=== PATIENT | female | born 1995 | race African-American/Black ===

== ENCOUNTER → 2016-03-17 | Outpatient (CLI) | payer OTHER ==
[~2016-03-17] MED LIST: DEPO150I IM; IBUP-232 PO; METR-1 PO; NIFE30TA8 PO; PREN1CAP20; RANI150C PO; SENN1TAB PO
== END ==
LOC: HPND 09:56
PROVIDERS: ATTEND Obstetrics & Gynecology Obstetrics
DX: O35.3XX0 Maternal care for (suspected) damage to fetus from viral disease in mother, not applicable or unspecified (principal); O44.03 Complete placenta previa NOS or without hemorrhage, third trimester; O35.2XX0 Maternal care for (suspected) hereditary disease in fetus, not applicable or unspecified; O44.43 Low lying placenta NOS or without hemorrhage, third trimester; Z3A.28 28 weeks gestation of pregnancy
CPT/HCPCS: 76811

== ENCOUNTER → 2016-04-07 | Outpatient (CLI) | payer OTHER ==
[~2016-04-07] MED LIST changes: -RANI150C PO
== END ==
LOC: HPND 09:56
PROVIDERS: ATTEND Obstetrics & Gynecology Obstetrics
DX: O43.893 Other placental disorders, third trimester (principal); O98.313 Other infections with a predominantly sexual mode of transmission complicating pregnancy, third trimester; O36.5930 Maternal care for other known or suspected poor fetal growth, third trimester, not applicable or unspecified; Z3A.31 31 weeks gestation of pregnancy
CPT/HCPCS: 76816

== ENCOUNTER 2016-04-25 11:06 | Emergency (ER) | payer OTHER ==
[~2016-04-25 11:06] MED LIST changes: -DEPO150I IM; -IBUP-232 PO; -METR-1 PO; -NIFE30TA8 PO; -SENN1TAB PO
--- NOTE | 2016-04-25 11:49 | PD ---
HPI Travel History International Travel<30 Days: No Contact w/Intl Traveler<30Days: No Known Affected Area: No History of Present Illness HPI This patient is a 20-year-old 4 para 2 EDC is June 08, 2012 placing the patient at 33 weeks and 5 days she states she began having sharp lower abdominal low back pain at 944 this morning had a second episode at 10 and then at 10:30 no ruptured membranes no vaginal bleeding the baby is active care with care for women problem list includes morbid obesity anemia trichomonas previously treated for syphilis being monitored RPR titers presently the repeat RPR VDRL titers her monthly than every 369 and 12 months after treatment infectious control and health department has been notified patient's baseline blood pressure 118/60 No fever no chills no nausea no vomiting no diarrhea or constipation no recent sexual intercourse patient is presently in school she is very active and on her feet she reports urinary frequency and urgency but no dysuria History Past Medical History Narrative Medical Allergy to Percocet history of morbid obesity and elevated blood pressure she is on medication cannot tell me what medication she is on and she took her last dose yesterday Obstetric History Obstetric History First baby born in 2008 male weight 6 lbs. 5 oz. vaginal delivery Second baby 2013 male weight 6 lbs. 14 oz. vaginal delivery Third baby 2016 female infant weight 6 lbs. 6 oz. vaginal delivery head elevated blood pressure with this Past Surgical History Narrative Surgical Surgery on her right arm and shoulder Family History Narrative Family History Positive for diabetes and hypertension Social History Alcohol Use: No Tobacco Use: No Substance Abuse: No Allergies-Medications (Allergen,Severity, Reaction): Coded Allergies: Percocet (Verified Allergy, Severe, WEAKNESS, 04/01/16) Home Meds Reported Medications W/O Vit A W/ Fe Carbo (Prenate Mini 18-0.6-0.4-350 mg)1 Cap Cap 01/22/16 Review of Systems General / Constitutional: No: Fever, Weight Gain, Weight Loss, Chills, Other Eyes: No: Diploplia, Blurred Vision, Visual changes, Pain, Photophobia, Other HENT: No: Headaches, Vertigo, Dental Difficulties, Lightheadedness, Other Cardiovascular: No: Irregular Rhythm, Chest Pain or Discomfort, Palpitations, Tachycardia, Syncope, Varicosities, Edema, Cyanosis, Other Respiratory: No: Cough, Short of Breath, Wheezing, Other Gastrointestinal: Abdominal Pain (as per history of present illness) Genitourinary: Urgency, Frequency, Hesitancy Musculoskeletal: Other (low back pain), No: Limited ROM, Weakness, Cramping, Edema, Pain Neurologic: No: Weakness, Dizziness, Syncope, Focal Abnormalities, Coordination Problem, Headache, Slurred Speech, Seizures, Other Physical Exam Narrative Alert oriented 3 and cooperative in no acute distress GENERAL: Well-nourished, well-developed patient. CARDIOVASCULAR: Regular rate and rhythm without murmurs, gallops, or rubs. RESPIRATORY: Breath sounds equal bilaterally. No accessory muscle use. ABDOMEN/GI: Gravid consistent with stated gestational age morbidly obese it soft tenderness over the right and left round ligament no rebound tenderness Gravid to [-] weeks size proximally 34 Fundal Height: [-] GENITOURINARY: Speculum exam is done there is a fishy greenish copious discharge in the vagina the vaginal mucosa is erythematous cervix is grossly thick and closed External Genitalia: intact and normal in appearance BUS glands: [-] Cervix: [-] Posterior firm Dilatation: [-] External os is fingertip internal os is closed Effacement: [-] 0 Station: [-] Ballotable Presentation: [-] Vertex Membranes: [intact Uterine Contractions: [-] No contractions on the monitor FHT's: Category: [-] 1 Baseline: [-] 140 Reactive: [-]+ Variability: [-] Moderate [id number] variability Decels: [-] 0 EXTREMITIES: No cyanosis or edema. 2+ BACK: Nontender without obvious deformity. No CVA tenderness. NEUROLOGICAL: Awake and alert. Motor and sensory grossly within normal limits. Five out of 5 muscle strength in all muscle groups. Normal speech. Data Data Vital Signs Reviewed: Yes (blood pressure 126/65 pulse is 98 she is afebrile) Orders Vital Signs (Adult) .ON ADMISSION (04/25/16 11:39) ^ Labor Status (04/25/16 11:39) Urinalysis - C+S If Indicated (04/25/16 11:39) ^ Hydration (04/25/16 11:39) Wet Prep Profile (04/25/16 11:39) [facility] Medical Record Reviewed: Yes Interpretation(s) 20-year-old at 33 weeks and 5 days Not in labor Morbidly obese Rule out UTI Vaginitis consistent with either BV or Trichomonas GC Chlamydia cultures done History of positive syphilis treated Narrative Course / MDM GC chlamydia are negative Wet prep negative Culture not indicated Results given to patient She is given Vistaril 50 mg by mouth bed rest by mouth fluid hydration pelvic rest Keep next appointment Plan External monitoring By mouth fluid hydration Urinalysis GC Chlamydia PCR Wet prep Reevaluation Diagnosis Diagnosis: Primary Impression: [place] contractions Additional Impressions: Morbid obesity Qualified Code: E66.01 - Morbid obesity, unspecified obesity type 33 weeks gestation of Disposition: DISCHARGE HOME Condition: Stable Holly Cordero MD Apr 25, 2016 11:49
[2016-04-25 12:06] LABS: BACTERIA, URINE RARE /hpf; BLOOD, URINE NEG (NEG); COMMENT (UR) CULT NOT INDICATED; CULTURE IF INDICATED CULT NOT INDICATED; GLUCOSE,URINE NEG (NEG); KETONE, URINE TRACE mg/dL (NEG); MUCUS URINE FEW /lpf (OCC); NITRITE,URINE NEG (NEG); SQUAMOUS EPITHELIAL CELL URINE 1 /hpf (0-5); TRANSITIONAL EPI CELLS, URINE <1 /hpf; URINE COLOR YELLOW (YELLW/STRAW)
[2016-04-25 15:08] LABS: CHLAMYDIA PCR NOT DETECTED (NOT DETECT); NEISSERIA PCR NOT DETECTED (NOT DETECT)
[2016-06-10] MEDS ORDERED: DEPO150I IM (12:45)
[2016-06-10] MEDS ORDERED: IBUP-232 PO (12:45)
[2016-07-01] MEDS ORDERED: NIFE30TA8 PO (10:11)
[2016-07-01] MEDS ORDERED: METR-1 PO (10:14)
== END 2016-04-25 13:39 | disposition home or self-care (01) ==
LOC: HOBED 11:06
DX: O47.03 False labor before 37 completed weeks of gestation, third trimester (principal); O99.213 Obesity complicating pregnancy, third trimester; E66.01 Morbid (severe) obesity due to excess calories; Z3A.33 33 weeks gestation of pregnancy
CPT/HCPCS: 81001; 87210; 87491; 87591; 99284

== ENCOUNTER 2016-05-19 11:15 | Inpatient (IN) | payer OTHER ==
[~2016-05-19] VITALS: Ht 157.5 cm; Wt 124.3 kg
[2016-05-19] MEDS ORDERED: LACTATED RINGER'S 1000 ML INJ 1,000 ML IV PRN (11:21)
[2016-05-19] MEDS: LACTATED RINGER'S 1000 ML INJ 1,000 ML IV SCH ×3 (11:21→23:03)
--- NOTE | 2016-05-19 11:26 | HHI.HP ---
HPI Chief Complaint sent from [facility] for oligohydramnios, elevated blood pressures Date Seen: May 19, 2016 Time Seen: 11:25 (Cesar Lopez MD R2) Travel History International Travel<30 Days: No Contact w/Intl Traveler<30Days: No (Cesar Lopez MD R2) History of Present Illness HPI 20 year old at 37/1 weeks gestation sent from [facility] for elevated blood pressures and oligohydramnios with IUGR and grade 3 placenta. Blood pressures of 140's-150's/90's but without severe headache, epigastric pain, new onset swelling, or visual changes. MARY ANN today is 5.5. She has no contractions, vaginal bleeding, leakage of fluid. She has good movements. She has been following regularly with [facility] for oligohydramnios and IUGR. Hypertension is new. She also had positive VDRL with FTA-abs in 11/25. Repeat RPR was negative yesterday and reflex to FTA-abs is pending. (Cesar Lopez MD R2) History Past Medical History Narrative Medical None (Cesar Lopez MD R2) Obstetric History Obstetric History OB. Panel ANAMARIA 06/08/16 - by Definite LMP of 09/02/15 Confirmed by Ultrasound 12/02/15 first trimester scan done at [facility] Problems/Plan Sono findings 03/17- grade III placenta and small AC Sono findings 04/07- abnormal umbilical doppler and Low MARY ANN Sono finding 04/28: IUGR morbid obesity anemia 11/24-+TRICH-pt aware 11/25-+syphillis ab(5.6)-rpr non reactive- FTA-ABS REACTIVE: pt was + for syphillis September 2013 with tx needs Iron studies, ferritin, TIBC, serum iron [facility] appt- 12/01. [facility] anatomy scan scheduled. 01/26 @10:30 03/18/16, Gave Pt RPR Titer Lab Req. Today. [facility] appt 02/18/16 @ 10:15 OB Dx appointment 04/07/16, for growth. [facility] appt 04/14 [facility] appt 04/17 [facility] appt 04/21, 04/28 [facility] appt- start twice weekly bpp with MCA and umblical dopplers Repeat the RPR/VDRL titers monthly and then 3,6,9,and 12 months after treatment , Notify infectious control and Bigg Department for proper treatment of her partner. 04/01-HGB 8.8 *PATIENT DOES NOT HAVE A WORKING PHONE NUMBER, NEEDS FOLLOW UP RIZWANA* Expected Delivery Route/Plan vaginal Visit Flowsheet Prepregnancy Weight: 245 #: 3 Date EGA BP Wt Alb Glu FuHt Pres FHR F/m CTX Edema Dil Eff Sta Prov 10/24/14 0w0d 90/60 252 T n Absent Absent Absent 0 0 sc 11/21/14 0w0d 110/77 254 N N 17 136 Absent Absent Absent sc 12/18/14 0w0d 96/66 252 T n 21 137 Active Absent Absent sc 01/24/15 0w0d 102/72 251 30 141 Active Absent Absent sc 02/21/15 0w0d 100/70 257 33 136 Active Absent Absent sc 03/27/15 0w0d 132/70 254 30 n 39 137 Active BH Absent sc 04/22/15 0w0d N N 11/26/15 12w1d 118/60 268 t n 150 Absent Absent Absent 0 0 sc 12/25/15 16w2d 132/70 262 n n 16 144 Normal Absent Absent lb 01/22/16 20w2d 110/82 266 n n 22 156 Normal Absent Absent lb 02/19/16 24w2d 113/51 263 30 n 24 140 Active Absent Absent sc 03/18/16 28w2d 116/66 265 30+ N 32 138 Active Absent Absent lb 04/01/16 30w2d 122/74 265 - - 33 140 Active Absent Absent sc 04/29/16 34w2d 119/66 273 N N 34 143 Active Absent Trace jg 05/14/16 36w3d 132/85 274 - - 37 140 Active BH Trace sc Cumulative Gain: 29 2 Date EGA Comment 05/14/16 36w3d Baby active, pt has URI, no fever. Pt being followed by [facility] twice weekly. q and Wed. GBS and cx obtained, noted copious vag dc. Vag panel ordered. Continue [facility] appts. labor discussed 04/29/16 34w2d BPP yesterday was 10 Sono shows severe IUGR Will continue to follow with testing 04/01/16 30w2d baby active, no c/o. Pt had labs drawn today. labor discussed 03/18/16 28w2d FTA pos, Tony recommends serial titers of rpr 02/19/16 24w2d Baby active, pt missed her US appt. at [facility] this past . She has already rescheduled. Discussed importance of keeping appt's. labor discussed 01/22/16 20w2d c/o tooth pain, 4 cavities and two molars broken off, will refer to dental clinic. Rx for amoxicillin. ANatomy sono next week at [facility] 12/25/15 16w2d reports good FM , no c/o today. Will schedule anatomy sono at [facility], rto here in 4 weeks 11/26/15 12w1d New OB, pap and cx obtained. Unable to hear FHT's w doppler, US used to confirm FHT's. will send to [facility] for dating due to MO. 03/27/15 0w0d SONO. Grade III placenta, EFW is WNL 45%tile, no abnormalities visualized although limited due to MBH, GA and lie. Referred to [facility] for weekly BPP 03/27/15 0w0d baby active, sts only BH ctx- needs iron rx- hgb 8.9 with 28wk labs. C/o rash all over body due to change of laundry detergent- no difficulty breathing. very itchy, pt's mother has same rash. Will treat. GBS and cultures done 02/21/15 0w0d Baby active, no c/o. labor reviewed. Will rescan at next visit. 01/24/15 0w0d sono. biometries consistant with dates. EFW 2lbs 4 oz. Placent grade 3, consider follow up growth and recheck placenta 4-6 weeks. 01/24/15 0w0d baby active, pt has not picked up meds for yeast. labor reviewed, labs ordered. 12/20/14 0w0d SONO. biometries consistant with dates, EFW 1 lb 2oz. no abormalities visualized although limited due to maternal body habitus and lie. Profile and heart views extremely limited. FU 4-5wk 12/18/14 0w0d Baby active, pt given terazol cream instead of diflucan. Encourage increased water intake. labor reviewed. 09/09/15 0w0d Good FHT's. Pt reminded to have labs drawn so we can better dx sx of back pain, sandro possible UTI. will return for anatomy scan and check up in 3 wks 10/24/14 0w0d Sono, EFW 3oz, Anatomy limited, needs followup ultrasound for anatomy 10/24/14 0w0d Initial OB visit, Pap and cx obtained. Noted irreg HR, reports vomitting. Unable to hear FHT's w doppler, will need US for dates and then will be sent to the ED for eval of anemia, N&V and irreg HR. Standard Items 3 Result Result Date Next Due Freq/Seq Obstetric Labs Initial Rapid Plasma Reagin Ordered Ordered Ordered 6w0d Hematocrit 29.9 L 16 (21w4d) 03/02/16 (26w0d) 6w0d 31.3 L 11/05/15 (9w1d) 26w0d Hemoglobin 9.7 L 01/31/16 (21w4d) 03/02/16 (26w0d) 6w0d 9.6 L 16 (9w1d) 26w0d Obstetric Labs 24-28 WKS Hematocrit 29.9 L 1816 (21w4d) 03/02/16 (26w0d) 6w0d 31.3 L 16 (9w1d) 26w0d Hemoglobin 9.7 L 16 (21w4d) 16 (26w0d) 6w0d 9.6 L 16 (9w1d) 26w0d History 2 : 4 AB Spontaneous: 0 Term: 3 Mult Births: 0 : 0 Ectopic: 0 AB Induced: 0 Living Children: 3 Past Pregnancies 3 Delivery Gest. Outcome Route Length of Anesthesia Delivery Date Age/Wks # Weight/Sex Labor Location Labor 09/11/08 39 1 Live Vaginal 6 lbs 5 oz - M 9 Hrs Epidural HH No 01/08/14 39 1 Live Vaginal 6 lbs 14 oz - M 10 Hrs Epidural HH No 04/08/15 38 1 Live Vaginal 6 lbs 5 oz - F 8 Hrs Epidural [place] No OTHER- Care-Labs/US Initial lab date: Nov 26, 2015 Blood type: O D (Rh) Type: Positive Antibody screen: negative Hematocrit (%): 28.0 Hemoglobin (dL): 8.7 Pap test: normal (11/26/15+TRICH) Rubella: Immune VDRL: positive (+SYPHILLIS AND + FTA-ABS) Urine screen: Normal HBsAg: negative HIV: negative Chlamydia: negative Gonorrhea: negative Cystic fibrosis: negative (11/06-neg for CF, SMA, Fragile X) TSH: 0.47 Varicella: Negative (NON IMMUNE) Sickle Cell: Negative MRSA screen: Denied MRSA Hx MSAFP/multiple markers: negative (12/02/15-[facility] NEG, HAVING A GIRL) Visit date: Apr 01, 2016 Hematocrit (%): 29.3 Hemoglobin (dL): 8.8 Diabetes screen - 1-hr GGT: 106 MRSA screen: Denied MRSA Hx (Cesar Lopez MD R2) Past Surgical History Narrative Surgical skin surgery (Cesar Lopez MD R2) Family History Narrative Family History Mother with hypertension (Cesar Lopez MD R2) Social History Narrative Social History No smoking, drinking, or drug use (Cesar Lopez MD R2) Allergies-Medications (Allergen,Severity, Reaction): Coded Allergies: Percocet (Verified Allergy, Severe, WEAKNESS, 04/29/16) Home Meds Reported Medications W/O Vit A W/ Fe Carbo (Prenate Mini 18-0.6-0.4-350 mg)1 Cap Cap 01/22/16 Review of Systems Except as stated in HPI: all other systems reviewed are Neg (Cesar Lopez MD R2) Physical Exam Narrative GENERAL: Obese, comfortable SKIN: Warm and dry. HEAD: Normocephalic and atraumatic. EYES: No scleral icterus. No injection or drainage. ENT: No nasal drainage noted. Mucous membranes pink. Airway patent. NECK: Supple, trachea midline. No JVD. CARDIOVASCULAR: Regular rate and rhythm without murmurs, gallops, or rubs. ABDOMEN/GI: Abdomen soft, non-tender, bowel sounds present, no rebound, no guarding Gravid to [-] weeks size Fundal Height: [-] GENITOURINARY: External Genitalia: intact and normal in appearance Dilatation: 1 Effacement: 50 Station: -3 Presentation: Vertex Membranes: intact Uterine Contractions: none FHT's: Category: 1 Baseline: 140's Reactive: yes Variability: moderate Decels: none EXTREMITIES: No cyanosis or edema. BACK: Nontender without obvious deformity. No CVA tenderness. NEUROLOGICAL: Awake and alert. (Cesar Lopez MD R2) Data Data Vital Signs Reviewed: Yes (Cesar Lopez MD R2) Assessment/Plan Problem List: (1) Anemia complicating Plan: - Monitor CBC (2) Oligohydramnios Plan: MARY ANN of 5.5, post-37 weeks gestation. - Induce labor (3) Obesity (4) History of VDRL Plan: RPR negative but VDRL positive on 11/26/15 with FTA-abs positive, treated X1 with penicillin. RPR done yesterday which was negative, but FTA-abs pending. - Follow FTA-abs (5) induced hypertension Plan: BP's 140's-150's/90's, no headache, epigastric pain, visual changes. No documented history of hypertension. - CBC, CMP, monitor platelets, liver enzymes, hemoglobin, kidney function. - Monitor for development of severe symptoms, i.e. severe headache, epigastric pain, visual changes. - Low threshold for magnesium sulfate for abnormalities of the above. - BP medication only for BP's >160 systolic or >110 diastolic. (6) labor induction Plan: Unfavorable cervix, /-3. - Cervical ripening with cytotec - Continuous EFM Assessment and Plan 20 year old at 37/1 weeks gestation presents from [facility] with elevated blood pressures (140's-150's/90's), oligohydramnios, IUGR, history of syphilis, anemia. (Cesar Lopez MD R2) Attending Attestation The exam, history, and the medical decision-making described in the above note were completed with the assistance of the resident provider. I reviewed and agree with the findings presented. I attest that I had a [id number] encounter with the patient on the same day, and personally performed and documented my assessment and findings in the medical record. (Carlos Zuñiga MD) Cesar Lopez MD R2 May 19, 2016 11:26 Carlos Zuñiga MD May 19, 2016 12:44
[2016-05-19 11:29] VITALS: BP 157/95; PULSE 107
[2016-05-19 11:30] VITALS: RESP 18; TEMP 98.4
[2016-05-19] MEDS ORDERED: MINERAL OIL 10 ML VIAL TOPICAL PRN (11:30)
[2016-05-19] MEDS ORDERED: SODIUM CHLORID 0.9% 500 ML INJ 500 ML IV PRN (11:30)
[2016-05-19] MEDS ORDERED: SODIUM CHLORIDE 0.9% FLUSH 5 ML FLUSH IV SCH (11:30)
[2016-05-19] MEDS ORDERED: LIDOCAINE HCL 1% 50 ML VIAL INFIL PRN (11:30)
[2016-05-19] MEDS ORDERED: CITRIC ACID-SODIUM CITRATE LIQ 30 ML UDC PO SCH (11:30)
[2016-05-19] MEDS ORDERED: LIDOCAINE HCL 1% 50 ML VIAL I-DERMAL PRN (11:30)
[2016-05-19] MEDS ORDERED: OXYTOCIN 30 UNITS-500ML PREMIX 500 ML IV ONE (11:30)
[2016-05-19] MEDS ORDERED: SODIUM CHLORIDE 0.9% FLUSH 5 ML FLUSH IV PRN (11:30)
[2016-05-19] MEDS ORDERED: SODIUM CHLOR 0.9% 1000 ML INJ 1,000 ML IV PRN (11:41)
[2016-05-19] MEDS: SODIUM CHLORIDE 0.9% FLUSH 5 ML FLUSH IV FLUSH SCH ×2 (12:00→21:00)
[2016-05-19] MEDS ORDERED: SODIUM CHLORIDE 0.9% FLUSH 5 ML FLUSH IV FLUSH PRN (12:00)
[2016-05-19] MEDS ORDERED: LACTATED RINGER'S 1000 ML INJ 500 ML IV ONE (12:00)
[2016-05-19 12:01] LABS: HEMATOCRIT 32.1 % (35.0-46.0); MEAN CELL VOLUME 63.8 FL (80.0-100.0); MEAN CORPUSCULAR HEMOGLOBIN 19.4 PG (27.0-34.0); MEAN CORPUSCULAR HGB CONC 30.4 % (32.0-36.0); PLATELET COUNT 325 TH/MM3 (150-450); RED BLOOD COUNT 5.04 MIL/MM3 (4.00-5.30); RED CELL DISTRIBUTION WIDTH 19.1 % (11.6-17.2); WHITE BLOOD COUNT 7.4 TH/MM3 (4.0-11.0)
[2016-05-19 12:02] LABS: REVIEW FLAG FINAL
[2016-05-19 12:20] LABS: BACTERIA, URINE MANY /hpf; BLOOD, URINE SMALL (NEG); COMMENT (UR) CULTURE INDICATED; CULTURE IF INDICATED CULTURE INDICATED; GLUCOSE,URINE NEG (NEG); KETONE, URINE NEG (NEG); MUCUS URINE MOD /lpf (OCC); NITRITE,URINE NEG (NEG); SQUAMOUS EPITHELIAL CELL URINE 19 /hpf (0-5); URINE COLOR YELLOW (YELLW/STRAW)
[2016-05-19 12:23] LABS: ANION GAP 10 MEQ/L (5-15); AST (GOT) 11 U/L (15-37); BICARBONATE 24.5 MEQ/L (21.0-32.0); BLOOD UREA NITROGEN 5 MG/DL (7-18); CHLORIDE 105 MEQ/L (98-107); GLOMERULAR FILTRATION RATE 157 ML/MIN (>89); POTASSIUM 3.4 MEQ/L (3.5-5.1); SODIUM (NA) 139 MEQ/L (136-145)
[2016-05-19 12:26] LABS: ALKALINE PHOSPHATASE 196 U/L (45-117); ALT (GPT) 20 U/L (10-53); TOTAL BILIRUBIN ADULT 0.2 MG/DL (0.2-1.0); URIC ACID 4.7 MG/DL (2.6-6.0)
[2016-05-19] MEDS ORDERED: MISOPROSTOL 25 MCG SUPP VAGINAL ONE (12:30)
[2016-05-19 14:24] VITALS: TEMP 98.4
[2016-05-19 14:27] VITALS: RESP 20
[2016-05-19 14:29] VITALS: BP 126/67; PULSE 95
[2016-05-19] MEDS ORDERED: metroNIDAZOLE 500 MG TAB PO ONE (15:00)
[2016-05-19] MEDS ORDERED: MISOPROSTOL 25 MCG SUPP VAGINAL PRN (16:00)
--- NOTE | 2016-05-19 16:50 | PD.LABORPN ---
Subjective Subjective Resting in bed. Feeling contractions. No headache, visual blurriness, or epigastric pain. Otherwise doing well. Completed first dose of Cytotec. Contractions every 3 minutes. No cervical change since admission. Objective Vital Signs Vital Signs Date Time Temp Pulse Resp B/P Pulse Ox O2 Delivery O2 Flow Rate FiO2 05/19/16 14:29 95 126/67 05/19/16 14:27 20 05/19/16 14:24 98.4 05/19/16 11:30 18 05/19/16 11:30 98.4 05/19/16 11:29 107 157/95 Objective Pelvic Exam: Dilatation: 1 Effacement: 50 Station: -3 Presentation: vertex Membranes: intact Uterine Contractions: q3mins FHT's: Category:1 Baseline: 130's Reactive: yes Variability: moderate Decels: none Assessment/Plan Problem List: (1) Anemia complicating Plan: - Monitor CBC, hgb 9.8 (2) Oligohydramnios Plan: MARY ANN of 5.5, post-37 weeks gestation. - See "labor induction" for plan (3) Obesity (4) History of VDRL Plan: RPR negative but VDRL positive on 11/26/15 with FTA-abs positive, treated X1 with penicillin. RPR done yesterday which was negative, but FTA-abs pending. - Follow FTA-abs (5) induced hypertension Plan: BP's improving since admission, no headache, epigastric pain, visual changes. No documented history of hypertension. Hgb 9.8, platelets 325, ALT 20, AST 11, creatinine 0.58. - Monitor for development of severe symptoms, i.e. severe headache, epigastric pain, visual changes. - Low threshold for magnesium sulfate if developing severe symptoms - BP medication only for BP's >160 systolic or >110 diastolic. (6) labor induction Plan: Cervix still 50/-3, contractions every 3 minutes, completed first dose of cytotec - Continuous EFM - Hold off on Cytotec dosing for now due to contractions, monitor (7) Trichomonas infection Plan: Positive for trichomonas - Treated with one time dose of 2g metronidazole - Recommend partner be treated Cesar Lopez MD R2 May 19, 2016 16:50
[2016-05-19] MEDS ORDERED: OXYTOCIN 30 UNITS-500ML PREMIX 500 ML IV SCH (20:45)
[2016-05-19] MEDS ORDERED: ONDANSETRON HCL 4 MG/2 ML VIAL ONE (21:32)
[2016-05-19] MEDS ORDERED: ONDANSETRON HCL 4 MG/2 ML VIAL IV PUSH PRN (21:45)
[2016-05-20] VITALS (29 sets, daily range): BP systolic 137–167; BP diastolic 60–102; PULSE 83–100; RESP 18–20; TEMP 97.7–98.5; O2SAT 98–100
[2016-05-20] MEDS: LACTATED RINGER'S 1000 ML INJ 1,000 ML IV SCH ×3 (00:08→15:59)
--- NOTE | 2016-05-20 04:52 | PD.LABORPN ---
Subjective Subjective 37 wk IUP with IUGR , oligo , HTN now for induction AROM clear IUPC FSE inserted to better evaluate labor , FHR WNL good variability pitocin at 11 ml/min , epidural in place Anticipate vaginal delivery Objective Objective Pelvic Exam: Cervix: [-] Dilatation: [3-4-] Effacement: [50-] Station: [-3] Presentation: [-vtx] Membranes: [ ruptured]AROM Uterine Contractions: [reg-] FHT's: Category: [-1] Baseline: [133-] Reactive: [yes-] Variability: [mod-] Decels: [0-] Assessment/Plan Problem List: (1) Anemia complicating Plan: - Monitor CBC, hgb 9.8 (2) Oligohydramnios Plan: MARY ANN of 5.5, post-37 weeks gestation. - See "labor induction" for plan (3) Obesity (4) History of VDRL Plan: RPR negative but VDRL positive on 11/26/15 with FTA-abs positive, treated X1 with penicillin. RPR done yesterday which was negative, but FTA-abs pending. - Follow FTA-abs (5) induced hypertension Plan: BP's improving since admission, no headache, epigastric pain, visual changes. No documented history of hypertension. Hgb 9.8, platelets 325, ALT 20, AST 11, creatinine 0.58. - Monitor for development of severe symptoms, i.e. severe headache, epigastric pain, visual changes. - Low threshold for magnesium sulfate if developing severe symptoms - BP medication only for BP's >160 systolic or >110 diastolic. (6) labor induction Plan: Cervix still /50/-3, contractions every 3 minutes, completed first dose of cytotec - Continuous EFM - Hold off on Cytotec dosing for now due to contractions, monitor (7) Trichomonas infection Plan: Positive for trichomonas - Treated with one time dose of 2g metronidazole - Recommend partner be treated Efrain Le II, MD May 20, 2016 04:52
[2016-05-20] MEDS ORDERED: fentaNYL 2MCG-BUPIV 0.125% INJ 100 ML ONE (06:42)
[2016-05-20] MEDS: SODIUM CHLORIDE 0.9% FLUSH 5 ML FLUSH IV FLUSH SCH (09:00)
--- NOTE | 2016-05-20 12:23 | PD.OB.DELI ---
Anesthesia: Epidural Episiotomy: None Vaginal Delivery: Normal Presentation: Occiput anterior Nuchal Cord: None Delayed cord clamping (45 sec): Yes : Female One Minute : 9 Five Minute : 9 Weight: 5LB 5 OZ Infant Care: Suctioned, Spontaneous crying, Responded to stimulation Placenta: Spontaneous delivery, Intact, 3 vessel cord, Other (some calcification on side of placenta) Laceration: No lacerations Additional Information This 20-year-old G for P3 at 37 and 2/7 weeks initially admitted to L&D for IUGR , grade 3 placenta, and borderline elevated blood pressures delivered vaginally under epidural anesthesia. AROM occurred at 0436 this morning, clear. The infant was delivered quickly possibly 3 total pushes. was transferred to patient's abdomen after delivery. Infant was suctioned with bulb on the abdomen. The cord was clamped and cut by a relative. Placenta was delivered intact with normal three-vessel cord, notable for some calcifications but not severe. The fundus was firm with massage and IV Pitocin. There are minimal superficial lacerations, one in the right periurethral area 1 on the left distal vaginal wall. Female weighs 5 lbs. 5 oz. and Apgars were 8 and 9. EBL is 200 mL. Mom and AB are recovering well. Dr. Fischer was present for delivery. (Gretel Monroy MD R1) Collaborating MD Comments Dr Monroy was supervised through this spontaneous vaginal delivery over intact perineum. Right periurethral tear not repaired. Placenta delivered intact. EBL<500cc (Carrol Fischer MD) Gretel Monroy MD R1 May 20, 2016 12:23 Carrol Fischer MD May 20, 2016 18:29
[2016-05-20] MEDS ORDERED: WITCH HAZEL 50%/GLYCERIN 12.5% 40 PAD JAR TOPICAL PRN ×2 (13:00→14:45)
[2016-05-20] MEDS ORDERED: IBUPROFEN 600 MG TAB PO PRN (13:00)
[2016-05-20] MEDS ORDERED: ONDANSETRON ODT 4 MG TAB PO PRN ×2 (13:00→14:45)
[2016-05-20] MEDS ORDERED: DOCUSATE SODIUM 50 MG/SENNA 8.6 MG TAB PO PRN ×2 (13:00→14:45)
[2016-05-20] MEDS ORDERED: ALUMINUM/MAGNESIUM/SIMETH 30 ML CUP PO PRN ×2 (13:00→14:45)
[2016-05-20] MEDS ORDERED: ACETAMINOPHEN 325 MG TAB PO PRN ×2 (13:00→14:45)
[2016-05-20] MEDS ORDERED: ZOLPIDEM TARTRATE 5 MG TAB PO PRN ×2 (13:00→14:45)
[2016-05-20] MEDS ORDERED: SODIUM CHLORIDE 0.9% FLUSH 5 ML FLUSH IV PRN ×2 (13:00→14:45)
[2016-05-20] MEDS ORDERED: BENZOCAINE 20% TOPICAL SPRAY 60 ML CAN TOPICAL PRN ×2 (13:00→14:45)
[2016-05-20 14:15] LABS: AUTOMATED NEUTROPHIL # 11.3 TH/MM3 (1.8-7.7); BASOPHIL % 0.2 % (0.0-2.0); HEMATOCRIT 29.9 % (35.0-46.0); LYMPH % 8.9 % (9.0-44.0); LYMPHOCYTE # 1.2 TH/MM3 (1.0-4.8); MEAN CELL VOLUME 64.1 FL (80.0-100.0); MEAN CORPUSCULAR HEMOGLOBIN 19.4 PG (27.0-34.0); MEAN CORPUSCULAR HGB CONC 30.2 % (32.0-36.0); MONO % 4.4 % (0.0-8.0); NEUT % 86.5 % (16.0-70.0); PLATELET COUNT 297 TH/MM3 (150-450); RED BLOOD COUNT 4.66 MIL/MM3 (4.00-5.30); RED CELL DISTRIBUTION WIDTH 18.9 % (11.6-17.2)
[2016-05-20] MEDS ORDERED: MAGNESIUM SULFATE 4 GM PREMIX 100 ML IV ONE (14:15)
[2016-05-20] MEDS: MAGNESIUM SULFATE 40 GM PREMIX 1,000 ML IV SCH (14:16)
[2016-05-20 14:18] LABS: HEMO FLAGS AUTO DIFF
--- NOTE | 2016-05-20 14:19 | HHI.OB ---
Subjective Post Day: 0 Remarks 20 year old G4P now 4 at 37/1 weeks gestation presented from [facility] on 05/19/16 with elevated blood pressures (140's-150's/90's), oligohydramnios, IUGR, history of syphilis, anemia. She delivered via normal spontaneous vaginal delivery at 1137 today. She has had elevated blood pressures during the , though not in the preeclamptic range. She now has elevated blood pressure readings which meet preeclampsia criteria 2, 167/91 and 160/107 noted 30 minutes apart. No hemorrhage noted. She is asymptomatic. Objective Vitals/I&O Vital Signs Date Time Temp Pulse Resp B/P Pulse Ox O2 Delivery O2 Flow Rate FiO2 05/20/16 06:57 18 05/19/16 14:29 95 126/67 05/19/16 14:24 98.4 BP noted in OB trace to 167/91 at 1335, 164/107 at 1405, pulse is 94-97 Objective Remarks GENERAL: Obese female in NAD. She remains afebrile with vital signs showing elevated blood pressure as noted above. No evidence of hemorrhage or pain. Medications and IVs Current Medications Medications (Trade) Dose Ordered Sig/Ambrocio Route Start Time Stop Time Status Last Admin Lactated Ringer's 1,000 ml @ 75 mls/hr [id number] IV 05/19/16 11:21 05/20/16 00:08 Lactated Ringer's 1,000 ml @ 125 mls/hr Q8H IV 05/19/16 11:21 05/20/16 06:18 Lactated Ringer's 1,000 ml @ 3,000 mls/hr Q20M PRN IV 05/19/16 11:21 Sodium Chloride 500 ml @ 1,000 mls/hr ONCE PRN IV 05/19/16 11:30 05/21/16 11:29 (NS 1000 ml Inj) 1,000 ml @ 100 mls/hr Q10H PRN IV 05/19/16 11:41 05/20/16 09:05 (fentaNYL INJ) 50 mcg Q1H PRN IV PUSH 05/19/16 11:30 (fentaNYL INJ) 100 mcg Q1H PRN IV PUSH 05/19/16 11:30 (Muri-Lube Oil) 10 ml UNSCH PRN TOPICAL 05/19/16 11:30 (NS Flush) 2 ml BID IV FLUSH 05/19/16 12:00 IV Flush 2 ml 2 ml UNSCH PRN IV FLUSH 05/19/16 12:00 (Pitocin 30 Units-NS 500 ml Premix) 500 ml @ 0 mls/hr TITRATE IV 05/19/16 20:45 05/19/16 21:10 (Zofran Inj) 4 mg Q8HR PRN IV PUSH 05/19/16 21:45 (NS Flush) 2 ml BID IV 05/20/16 21:00 (NS Flush) 2 ml UNSCH PRN IV 05/20/16 13:00 (Tylenol) 650 mg Q4H PRN PO 05/20/16 13:00 (Motrin) 600 mg Q6H PRN PO 05/20/16 13:00 (Percocet 5-325 Mg) 1 tab Q4H PRN PO 05/20/16 13:00 (Percocet 5-325 Mg) 2 tab Q4H PRN PO 05/20/16 13:00 (Americaine 20% Top Spr) 1 spray Q4H PRN TOPICAL 05/20/16 13:00 (Tucks Pads) 1 applic QID PRN TOPICAL 05/20/16 13:00 (Gricel-Colace) 2 tab Q12H PRN PO 05/20/16 13:00 (Ambien) 5 mg HS PRN PO 05/20/16 13:00 (M-M-R Ii Inj) 0.5 ml ONCE ONCE SQ 05/20/16 16:00 05/20/16 16:01 (Boostrix Inj) 0.5 ml ONCE ONCE IM 05/20/16 16:00 05/20/16 16:01 (Mag-Al Plus Susp Liq) 15 ml Q8H PRN PO 05/20/16 13:00 Ondansetron HCl 4 mg 4 mg Q6H PRN PO 05/20/16 13:00 Magnesium Sulfate 1,000 ml @ 50 mls/hr Q20H IV 05/20/16 14:02 UNV (Magnesium Sulfate 4 Gm Premix) 100 ml @ 300 mls/hr ONCE ONCE IV 05/20/16 14:15 05/20/16 14:34 UNV Assessment/Plan Problem List: (1) induced hypertension Plan: No headache, epigastric pain, visual changes. No documented history of hypertension the patient possibly has chronic hypertension. Admission labs showed Hgb 9.8, platelets 325, ALT 20, AST 11, creatinine 0.58. Plan: IUP delivered 05/20/at 11:37 AM Patient is asymptomatic Suspect preeclampsia vs gestational HTN vs. chronic HTN. We'll order CBC and CMP at this time. Her gas and not indicated For seizure prophylaxis, start Mg sulfate 4 gm IV x 1 at 300 ml/hr, continue magnesium sulfate at 2 gm/h per protocol If blood pressure does not decrease with magnesium alone, will add Labetalol 20 mg IV q10 mins PRN SBP >150 DBP > 100 and will consider other BP medications per protocol if indicated. (2) Anemia complicating Plan: - Monitor CBC, hgb 9.8 at admission (3) Oligohydramnios Plan: MARY ANN of 5.5, post-37 weeks gestation. Now delivered. (4) Obesity (5) History of VDRL Plan: RPR negative but VDRL positive on 11/26/15 with FTA-abs positive, treated X1 with penicillin. RPR done yesterday which was negative. Patient does have an FTA ABS pending as outpatient. (6) Trichomonas infection Plan: Positive for trichomonas - Treated with one time dose of 2g metronidazole at admission - Recommend partner be treated Assessment and Plan Gretel Monroy MD R1 May 20, 2016 14:19 Gretel Monroy MD R1 May 20, 2016 14:19
[2016-05-20 14:34] LABS: ANION GAP 10 MEQ/L (5-15); AST (GOT) 12 U/L (15-37); BICARBONATE 24.3 MEQ/L (21.0-32.0); BLOOD UREA NITROGEN 4 MG/DL (7-18); CHLORIDE 106 MEQ/L (98-107); GLOMERULAR FILTRATION RATE 164 ML/MIN (>89); POTASSIUM 3.8 MEQ/L (3.5-5.1); SODIUM (NA) 140 MEQ/L (136-145)
[2016-05-20 14:37] LABS: ALKALINE PHOSPHATASE 166 U/L (45-117); ALT (GPT) 17 U/L (10-53); TOTAL BILIRUBIN ADULT 0.3 MG/DL (0.2-1.0)
[2016-05-20 15:06] LABS: SCAN/DIFF AUTO DIFF CONFIRMED
--- NOTE | 2016-05-20 15:11 | HHI.PR ---
MAIL ORDER BILLER Note Note Patient experienced elevated BP's to 170/102. Given Magnesium sulfate 4gm load followed by 2gm magnesium/hr. Labetolol 20mg IV given. Blood pressure has improved to 168/88. Patient denies h/o chronic hypertension but has experienced hypertension with each of her last two deliveries. Will start on Procardia 10mg po now then 10mg po TID. PIH labs checked are WNL. Carrol Fischer MD May 20, 2016 15:11
[2016-05-20] MEDS ORDERED: LABETALOL HCL 100 MG/20 ML VIAL IV PUSH ONE (15:15)
[2016-05-20] MEDS ORDERED: NIFEdipine 10 MG CAP PO PRN (15:30)
[2016-05-20] MEDS ORDERED: LABETALOL HCL 100 MG/20 ML VIAL IV PUSH PRN (15:45)
[2016-05-20] MEDS ORDERED: MEASLES, MUMPS, RUBELLA VACCINE 0.5 ML VIAL SQ ONE ×2 (16:00)
[2016-05-20] MEDS ORDERED: DIPHTH/TETANUS/ACEL PERTUSSIS (BOOSTER) 0.5 ML VIAL/PFS IM ONE ×2 (16:00)
[2016-05-20] MEDS ORDERED: ePHEDrine/NS 25 MG/5 ML SYR IV PRN (19:00)
[2016-05-20] MEDS ORDERED: fentaNYL 2MCG-BUPIV 0.125% 100 ML EPIDURAL SCH (19:00)
[2016-05-20] MEDS ORDERED: NO SYSTEM NARCOTICS XX PRN (19:00)
[2016-05-20] MEDS ORDERED: DO NOT ADMINISTER ANTICOAGULANTS XX PRN (19:00)
[2016-05-20] MEDS: IBUPROFEN 600 MG TAB PO PRN (19:40)
[2016-05-20] MEDS: SODIUM CHLORIDE 0.9% FLUSH 5 ML FLUSH IV SCH (21:00)
[2016-05-20] MEDS ORDERED: SODIUM CHLORIDE 0.9% FLUSH 5 ML FLUSH IV SCH (21:00)
[2016-05-21] VITALS (50 sets, daily range): BP systolic 106–178; BP diastolic 51–98; PULSE 87–116; RESP 17–22; TEMP 98–98.2; O2SAT 96–100
[2016-05-21] MEDS ORDERED: NIFEdipine 10 MG CAP PO SCH (01:00)
[2016-05-21] MEDS ORDERED: LABETALOL HCL 100 MG/20 ML VIAL IV ONE (05:00)
[2016-05-21] MEDS: IBUPROFEN 600 MG TAB PO PRN ×2 (05:00→21:28)
--- NOTE | 2016-05-21 07:50 | HHI.OB ---
Subjective Post Day: 1 Remarks day # 1. Patient has @ 1137 yesterday, after which she had elevated BPs concerning for PreE. Labs were drawn and unremarkable. She was started on Mg IV per protocol at 2pm on May 20. She has received Labetalol IV x 3: 20mg followed by 40mg yesterday afternoon approximately 2pm, which controlled BPs until approximately 2030 last night. BPs increased to max 178/98 at 0430 this morning. She received a 10mg PO dose of nifedipine followed by labetalol 20mg IV at 0100 and 0500 respectively. BP is now 162/83. Patient denies any pain, blurry vision, or other symptoms besides feeling sleepy. She is arousable. Denies calf pain or shortness of breath. (Gretel Monroy MD R1) Objective Vitals/I&O Vital Signs Date Time Temp Pulse Resp B/P Pulse Ox O2 Delivery O2 Flow Rate FiO2 05/21/16 07:21 88 151/73 05/21/16 07:14 18 05/21/16 07:01 89 152/79 05/21/16 06:41 88 155/80 05/21/16 06:21 94 158/84 05/21/16 05:58 18 05/21/16 05:57 88 153/79 05/21/16 05:21 87 161/90 05/21/16 05:05 18 05/21/16 05:05 89 147/74 05/21/16 04:31 88 170/92 05/21/16 04:29 92 18 178/98 100 05/21/16 04:28 97 05/21/16 03:28 96 05/21/16 03:27 98.0 05/21/16 03:26 18 05/21/16 03:25 90 05/21/16 03:25 157/92 05/21/16 02:12 18 100 05/21/16 02:10 104 131/63 05/21/16 01:23 18 05/21/16 01:21 89 168/88 05/21/16 01:20 99 05/21/16 00:28 18 05/21/16 00:27 89 172/92 05/21/16 00:25 100 05/21/16 00:23 161/95 05/20/16 23:25 97.7 05/20/16 23:25 84 18 153/81 100 05/20/16 22:30 83 18 154/90 100 05/20/16 21:30 100 05/20/16 21:30 154/93 05/20/16 21:30 89 18 05/20/16 20:30 20 100 05/20/16 20:30 90 138/69 05/20/16 20:00 98.1 05/20/16 19:40 94 100 05/20/16 19:15 90 157/87 100 05/20/16 19:10 93 100 05/20/16 19:01 162/102 05/20/16 18:55 92 100 05/20/16 16:01 91 141/79 05/20/16 16:00 20 05/20/16 15:54 91 137/76 05/20/16 15:25 98.5 05/20/16 15:25 96 100 05/20/16 15:21 95 154/68 05/20/16 15:20 96 05/20/16 15:20 100 05/20/16 15:16 96 158/88 05/20/16 15:15 95 05/20/16 15:15 100 05/20/16 15:11 94 156/60 05/20/16 15:10 95 05/20/16 15:10 99 05/20/16 15:06 97 165/77 05/20/16 15:05 99 05/20/16 15:05 96 05/20/16 15:01 97 165/84 05/20/16 15:00 97 05/20/16 15:00 98 05/20/16 14:56 100 167/82 05/20/16 14:55 98 05/20/16 14:55 96 05/20/16 14:50 98 05/20/16 14:45 99 05/20/16 14:40 98 Objective Remarks GENERAL: Obese female in NAD. She is sleeping but easily arousable She remains afebrile with vital signs showing elevated blood pressure as noted above CARDIOVASCULAR: Regular rate and rhythm without murmurs, gallops, or rubs. RESPIRATORY: Breath sounds equal bilaterally in anterior lung vizcarra. No accessory muscle use. ABDOMEN/GI: Abdomen obese and nontender to palpation. Fundus: Difficult to asses due to body habitus GENITOURINARY: Light to moderate bleeding. [place] in placed with clear fluid draining. EXTREMITIES: No cyanosis or edema, non-tender, without signs of DVT. Medications and IVs Current Medications Medications (Trade) Dose Ordered Sig/Ambrocio Route Start Time Stop Time Status Last Admin (Percocet 5-325 Mg) 1 tab Q4H PRN PO 05/20/16 13:00 Oxycodone/ Acetaminophen 2 tab 2 tab Q4H PRN PO 05/20/16 13:00 (Magnesium Sulfate 40 Gm Premix) 1,000 ml @ 50 mls/hr Q20H IV 05/20/16 14:02 05/20/16 14:16 (NS Flush) 2 ml BID IV 05/20/16 21:00 (NS Flush) 2 ml UNSCH PRN IV 05/20/16 14:45 (Tylenol) 650 mg Q4H PRN PO 05/20/16 14:45 (Motrin) 600 mg Q6H PRN PO 05/20/16 14:45 05/21/16 05:00 (Americaine 20% Top Spr) 1 spray Q4H PRN TOPICAL 05/20/16 14:45 (Tucks Pads) 1 applic QID PRN TOPICAL 05/20/16 14:45 (Gricel-Colace) 2 tab Q12H PRN PO 05/20/16 14:45 (Ambien) 5 mg HS PRN PO 05/20/16 14:45 (Mag-Al Plus Susp Liq) 15 ml Q8H PRN PO 05/20/16 14:45 (Zofran Odt) 4 mg Q6H PRN PO 05/20/16 14:45 Miscellaneous Information No systemic narcotics to be given except... UNSCH PRN XX 05/20/16 19:00 05/21/16 18:59 Miscellaneous Information DO NOT ADMINISTER ANY ANTICOAGUL... UNSCH PRN XX 05/20/16 19:00 05/21/16 18:59 (fentaNYL 2MCG-BUPIV 0.125% INJ) 100 ml @ 0 mls/hr TITRATE EPIDURAL 05/20/16 19:00 (ePHEDrine/NS 25 MG/5 ML SYR) 10 mg UNSCH PRN IV 05/20/16 19:00 05/21/16 18:59 (Procardia) 10 mg Q8H PO 05/21/16 01:00 05/21/16 01:22 (Gretel Monroy MD R1) Assessment/Plan Problem List: (1) induced hypertension Plan: No headache, epigastric pain, visual changes. No documented history of hypertension the patient possibly has chronic hypertension. Admission labs showed Hgb 9.8, platelets 325, ALT 20, AST 11, creatinine 0.58. Plan: IUP delivered 05/20/at 11:37 AM Patient is asymptomatic Suspect preeclampsia vs gestational HTN vs. chronic HTN. Mg sulfate 4 gm IV x 1 at 300 ml/hr, continue magnesium sulfate at 2 gm/h per protocol - due to end at approx 2pm today BP not well-controlled at this time, suggestive of chronic HTN Will start Procardia 20mg PO TID to control BP, monitor BPs closely (2) Anemia complicating Plan: - Monitor CBC, hgb 9.8, CBC at 1399May 20 was 9.0 (3) Oligohydramnios Plan: MARY ANN of 5.5, post-37 weeks gestation. Now delivered. (4) Obesity (5) History of VDRL Plan: RPR negative but VDRL positive on 11/26/15 with FTA-abs positive, treated X1 with penicillin. RPR done yesterday which was negative. Patient does have an FTA ABS pending as outpatient. (6) Trichomonas infection Plan: Positive for trichomonas - Treated with one time dose of 2g metronidazole at admission - Recommend partner be treated Assessment and Plan (Gretel Monroy MD R1) Attestation I agree with present management plans (Carrol Fischer MD) Gretel Monroy MD R1 May 21, 2016 07:50 Carrol Fischer MD May 21, 2016 09:34
[2016-05-21] MEDS ORDERED: NIFEdipine 20 MG CAP PO SCH (08:30)
[2016-05-21] MEDS: SODIUM CHLORIDE 0.9% FLUSH 5 ML FLUSH IV SCH ×2 (09:00→21:00)
[2016-05-21] MEDS: MAGNESIUM SULFATE 40 GM PREMIX 1,000 ML IV SCH (10:02)
[2016-05-21] MEDS: oxyCODONE/ACETAMINOPHEN 5 MG/325 MG TAB PO PRN ×2 (16:27→21:28)
[2016-05-21] MEDS: NIFEdipine 20 MG CAP PO SCH (17:00)
[2016-05-22] VITALS: BP 142/91; PULSE 85; RESP 16; TEMP 97.7
[2016-05-22] MEDS: NIFEdipine 20 MG CAP PO SCH ×2 (01:39→08:17)
[2016-05-22] MEDS: oxyCODONE/ACETAMINOPHEN 5 MG/325 MG TAB PO PRN ×3 (01:41→16:50)
[2016-05-22] MEDS: IBUPROFEN 600 MG TAB PO PRN ×2 (06:19→16:50)
[2016-05-22 08:10] VITALS: BP 147/88; PULSE 87; RESP 18; TEMP 97.6
--- NOTE | 2016-05-22 08:13 | HHI.OB ---
Subjective Remarks day # 2. Course complicated by preeclampsia. Blood pressures initially 170's/80's, now 140's/90's. No headache, blurry vision, epigastric pain, or new edema. She completed a course of magnesium sulfate. She is ambulating, pain well controlled. She is formula feeding. Encouraged , education on benefits. Lochia is minimal. She wants Depo-provera shot. She plans to follow with Jessica Marte. Objective Vitals/I&O Vital Signs Date Time Temp Pulse Resp B/P Pulse Ox O2 Delivery O2 Flow Rate FiO2 05/22/16 00:00 97.7 85 16 142/91 05/21/16 20:00 98.1 05/21/16 20:00 94 18 157/89 05/21/16 15:40 174/87 05/21/16 15:40 98.2 05/21/16 15:40 93 22 05/21/16 14:02 116 110/88 05/21/16 13:31 109 114/96 05/21/16 13:17 100 05/21/16 13:01 93 128/56 05/21/16 13:01 18 05/21/16 12:31 105 128/73 05/21/16 12:30 17 05/21/16 12:01 96 113/54 05/21/16 11:31 102 106/61 05/21/16 11:19 18 100 05/21/16 11:01 101 117/58 05/21/16 10:31 105 111/64 05/21/16 10:17 17 100 05/21/16 10:01 113 116/51 05/21/16 09:31 99 139/73 05/21/16 09:30 100 05/21/16 09:01 96 154/82 05/21/16 08:31 97 154/90 05/21/16 08:30 98.1 05/21/16 08:11 89 151/78 05/21/16 08:10 92 100 Objective Remarks GENERAL: Obese female in NAD. Resting in bed Elevated blood pressures, but improving. CARDIOVASCULAR: Regular rate and rhythm without murmurs, gallops, or rubs. RESPIRATORY: Breath sounds equal bilaterally in anterior lung vizcarra. No accessory muscle use. Fundus: Firm, nontender GENITOURINARY: Light to moderate bleeding. EXTREMITIES: No cyanosis or edema, non-tender, without signs of DVT. Medications and IVs Current Medications Medications (Trade) Dose Ordered Sig/Ambrocio Route Start Time Stop Time Status Last Admin (Percocet 5-325 Mg) 1 tab Q4H PRN PO 05/20/16 13:00 Oxycodone/ Acetaminophen 2 tab 2 tab Q4H PRN PO 05/20/16 13:00 05/22/16 06:19 (Magnesium Sulfate 40 Gm Premix) 1,000 ml @ 50 mls/hr Q20H IV 05/20/16 14:02 05/20/16 14:16 (NS Flush) 2 ml BID IV 05/20/16 21:00 05/21/16 21:00 (NS Flush) 2 ml UNSCH PRN IV 05/20/16 14:45 (Tylenol) 650 mg Q4H PRN PO 05/20/16 14:45 (Motrin) 600 mg Q6H PRN PO 05/20/16 14:45 05/22/16 06:19 (Americaine 20% Top Spr) 1 spray Q4H PRN TOPICAL 05/20/16 14:45 (Tucks Pads) 1 applic QID PRN TOPICAL 05/20/16 14:45 (Gricel-Colace) 2 tab Q12H PRN PO 05/20/16 14:45 (Ambien) 5 mg HS PRN PO 05/20/16 14:45 (Mag-Al Plus Susp Liq) 15 ml Q8H PRN PO 05/20/16 14:45 Ondansetron HCl 4 mg 4 mg Q6H PRN PO 05/20/16 14:45 (fentaNYL 2MCG-BUPIV 0.125% INJ) 100 ml @ 0 mls/hr TITRATE EPIDURAL 05/20/16 19:00 (Procardia) 20 mg Q8H PO 05/21/16 17:00 05/22/16 01:39 (Flu (Quadrivalent) Vaccine Inj) 0.5 ml ONCE ONCE IM 05/22/16 09:00 05/22/16 09:01 Assessment/Plan Problem List: (1) induced hypertension Plan: No headache, epigastric pain, visual changes. No documented history of hypertension. Admission labs showed Hgb 9.8, platelets 325, ALT 20, AST 11, creatinine 0.58. Plan: Mg sulfate course completed Procardia 20mg PO TID to control BP, monitor BPs closely (2) Anemia complicating (3) Oligohydramnios Plan: MARY ANN of 5.5, post-37 weeks gestation. Now delivered. (4) Obesity (5) History of VDRL Plan: RPR negative but VDRL positive on 11/26/15 with FTA-abs positive, treated X1 with penicillin. RPR now negative. (6) Trichomonas infection Plan: Positive for trichomonas - Treated with one time dose of 2g metronidazole at admission - Recommend partner be treated (7) Vaginal delivery Plan: - Ibuprofen for pain control. - Encourage ambulation - Plans on Depo-Provera for control - Monitor lochia - Follow up with OB within 3 days due to history of preeclampsia, needs close monitoring of blood pressures and pre-eclamptic symptoms Discussed with Dr. Le Assessment and Plan Cesar Lopez MD R2 May 22, 2016 08:13
[2016-05-22] MEDS ORDERED: INFLUENZA VIRUS VACCINE (QUADRIVALENT) 0.5 ML SYR IM ONE (09:00)
[2016-05-22] MEDS ORDERED: HYDROCHLOROTHIAZIDE 25 MG TAB PO SCH (09:00)
[2016-05-22] MEDS: NIFEdipine 30 MG SUSTAINED RELEASE TAB PO SCH (10:00)
[2016-05-22 12:50] VITALS: BP 121/77; PULSE 89; RESP 18
[2016-05-22 16:50] VITALS: BP 144/88; PULSE 95; RESP 18
[2016-05-22] MEDS: HYDROCHLOROTHIAZIDE 50 MG TAB PO SCH (16:50)
[2016-05-22 19:35] VITALS: BP 153/87; PULSE 88; RESP 16; TEMP 98
[2016-05-23 05:31] VITALS: BP 135/76; PULSE 90
--- NOTE | 2016-05-23 07:59 | HHI.OB ---
Subjective Remarks 20 year old PPD 3 after vaginal delivery. Course complicated by preeclampsia. Blood pressures now 150's/80's overnight, 135/76 this morning. No headache, blurry vision, epigastric pain, or new edema. She completed a course of magnesium sulfate. She is ambulating, pain well controlled. She is formula feeding. Encouraged , education on benefits. Lochia is minimal. She wants Depo-provera shot. She plans to follow with Jessica Marte. (Cesar Lopez MD R2) Objective Vitals/I&O Vital Signs Date Time Temp Pulse Resp B/P Pulse Ox O2 Delivery O2 Flow Rate FiO2 05/23/16 05:31 90 135/76 05/22/16 19:35 98.0 88 16 153/87 05/22/16 16:50 95 18 144/88 05/22/16 12:50 89 18 121/77 05/22/16 08:10 97.6 87 18 147/88 Objective Remarks GENERAL: Obese female in NAD. Resting in bed Elevated blood pressures, but improving. CARDIOVASCULAR: Regular rate and rhythm without murmurs, gallops, or rubs. RESPIRATORY: Breath sounds equal bilaterally in anterior lung vizcarra. No accessory muscle use. Fundus: Firm, nontender GENITOURINARY: Light to moderate bleeding. EXTREMITIES: No cyanosis or edema, non-tender, without signs of DVT. Medications and IVs Current Medications Medications (Trade) Dose Ordered Sig/Ambrocio Route Start Time Stop Time Status Last Admin (Percocet 5-325 Mg) 1 tab Q4H PRN PO 05/20/16 13:00 05/22/16 16:50 Oxycodone/ Acetaminophen 2 tab 2 tab Q4H PRN PO 05/20/16 13:00 05/22/16 06:19 (Magnesium Sulfate 40 Gm Premix) 1,000 ml @ 50 mls/hr Q20H IV 05/20/16 14:02 05/20/16 14:16 (NS Flush) 2 ml BID IV 05/20/16 21:00 05/21/16 21:00 (NS Flush) 2 ml UNSCH PRN IV 05/20/16 14:45 (Tylenol) 650 mg Q4H PRN PO 05/20/16 14:45 (Motrin) 600 mg Q6H PRN PO 05/20/16 14:45 05/22/16 16:50 (Americaine 20% Top Spr) 1 spray Q4H PRN TOPICAL 05/20/16 14:45 (Tucks Pads) 1 applic QID PRN TOPICAL 05/20/16 14:45 (Gricel-Colace) 2 tab Q12H PRN PO 05/20/16 14:45 05/22/16 08:17 (Ambien) 5 mg HS PRN PO 05/20/16 14:45 (Mag-Al Plus Susp Liq) 15 ml Q8H PRN PO 05/20/16 14:45 Ondansetron HCl 4 mg 4 mg Q6H PRN PO 05/20/16 14:45 (fentaNYL 2MCG-BUPIV 0.125% INJ) 100 ml @ 0 mls/hr TITRATE EPIDURAL 05/20/16 19:00 (Procardia Xl) 30 mg DAILY PO 05/22/16 10:00 (Hydrodiuril) 50 mg DAILY PO 05/22/16 10:00 05/22/16 16:50 (Cesar Lopez MD R2) Assessment/Plan Problem List: (1) induced hypertension Plan: No headache, epigastric pain, visual changes. No documented history of hypertension. Admission labs showed Hgb 9.8, platelets 325, ALT 20, AST 11, creatinine 0.58. Plan: Mg sulfate course completed Procardia 30 XL qday and HCTZ 50 mg qday (2) Anemia complicating (3) Oligohydramnios Plan: MARY ANN of 5.5, post-37 weeks gestation. Now delivered. (4) Obesity (5) History of VDRL Plan: RPR negative but VDRL positive on 11/26/15 with FTA-abs positive, treated X1 with penicillin. RPR now negative. Positive FTA-abs likely due to chronic seropositive status and not treatment failure. (6) Trichomonas infection Plan: Positive for trichomonas - Treated with one time dose of 2g metronidazole at admission - Recommend partner be treated (7) Vaginal delivery Plan: - Ibuprofen for pain control. - Encourage ambulation - Plans on Depo-Provera for control - Monitor lochia - Follow up with OB within 3 days due to history of preeclampsia, needs close monitoring of blood pressures and pre-eclamptic symptoms Discussed with Dr. Haddox Assessment and Plan (Cesar Lopez MD R2) Collaborating MD Comments Pt seen and examined. She will be discharged on Procardia with follow up with [facility] within 1 week for bp check (Carrol Fischer MD) Cesar Lopez MD R2 May 23, 2016 07:59 Carrol Fischer MD May 23, 2016 09:00
[2016-05-23] MEDS ORDERED: IBUP-232 PO (08:12)
[2016-05-23] MEDS ORDERED: SENN1TAB PO (08:12)
[2016-05-23] MEDS ORDERED: NIFE30TA8 PO (08:12)
--- NOTE | 2016-05-23 08:13 | HHI.DCPOC ---
Discharge Care Plan Diagnosis: (1) Trichomonas infection (2) Spontaneous vaginal delivery (3) induced hypertension Goals to Promote Your Health * To prevent worsening of your condition and complications * To maintain your health at the optimal level Directions to Meet Your Goals Take your medications as prescribed Follow your dietary instruction Follow activity as directed Keep your appointments as scheduled Take your immunizations and boosters as scheduled If your symptoms worsen call your PCP, if no PCP go to Urgent Care Center or Emergency Room Smoking is Dangerous to Your Health. Avoid second hand smoke Call the 24-hour hour crisis hotline for domestic abuse at Cesar Lopez MD R2 May 23, 2016 08:13
[2016-05-23] MEDS: IBUPROFEN 600 MG TAB PO PRN (08:21)
[2016-05-23] MEDS: oxyCODONE/ACETAMINOPHEN 5 MG/325 MG TAB PO PRN (08:21)
[2016-05-23 09:20] VITALS: BP 156/65; PULSE 98; RESP 20; TEMP 97.9
[2016-05-23] MEDS: HYDROCHLOROTHIAZIDE 50 MG TAB PO SCH (09:20)
[2016-05-23] MEDS: NIFEdipine 30 MG SUSTAINED RELEASE TAB PO SCH (09:20)
[2016-05-23 10:30] VITALS: BP 120/82; PULSE 95
[2016-05-23] MEDS: SODIUM CHLORIDE 0.9% FLUSH 5 ML FLUSH IV SCH (10:36)
[2016-06-10] MEDS ORDERED: DEPO150I IM (12:45)
[2016-06-10] MEDS ORDERED: IBUP-232 PO (12:45)
[2016-07-01] MEDS ORDERED: NIFE30TA8 PO (10:11)
[2016-07-01] MEDS ORDERED: METR-1 PO (10:14)
== END 2016-05-23 12:21 | disposition home or self-care (01) | DRG 774 ==
LOC: H2EA 11:15 → H2EB 05-20 15:35 → H1EA 05-21 15:02
PROVIDERS: ADMIT Obstetrics & Gynecology; ATTEND Obstetrics & Gynecology
PROC: 3E0P7GC Introduction of Other Therapeutic Substance into Female Reproductive, Via Natural or Artificial Opening (ICD-10-PCS; 2016-05-19)
PROC: 10E0XZZ Delivery of Products of Conception, External Approach (ICD-10-PCS; principal; 2016-05-20)
PROC: 10907ZC Drainage of Amniotic Fluid, Therapeutic from Products of Conception, Via Natural or Artificial Opening (ICD-10-PCS; 2016-05-20)
DX: O41.03X0 Oligohydramnios, third trimester, not applicable or unspecified (principal); O98.32 Other infections with a predominantly sexual mode of transmission complicating childbirth; Z68.43 Body mass index [BMI] 50.0-59.9, adult; O13.4 Gestational [pregnancy-induced] hypertension without significant proteinuria, complicating childbirth; O36.5930 Maternal care for other known or suspected poor fetal growth, third trimester, not applicable or unspecified; A59.9 Trichomoniasis, unspecified; A53.0 Latent syphilis, unspecified as early or late; E66.01 Morbid (severe) obesity due to excess calories; O99.214 Obesity complicating childbirth; O99.02 Anemia complicating childbirth; O71.82 Other specified trauma to perineum and vulva; O14.94 Unspecified pre-eclampsia, complicating childbirth; Z37.0 Single live birth; Z3A.37 37 weeks gestation of pregnancy; Z23 Encounter for immunization
CPT/HCPCS: 59025; 76816; 76818; 76820; 80053; 81001; 84550; 85025; 85027; 87081; 87086; 87150; 90686; 90715; J2405; J2590; J3475; J7030; J7120; Q2038

== ENCOUNTER 2016-09-28 18:53 | Emergency (ER) | payer OTHER ==
[~2016-09-28] VITALS: Ht 157.5 cm; Wt 126.4 kg
[~2016-09-28 18:53] MED LIST changes: +DEPO150I IM; +IBUP-232 PO; +METR-1 PO; +NIFE30TA8 PO; +SENN1TAB PO
[2016-09-28 18:55] VITALS: BP 163/89; PULSE 103; RESP 16; TEMP 97.9; O2SAT 98
[2016-09-28] MEDS ORDERED: FLUT1SPR5 EACH NARE (22:03)
[2016-09-28] MEDS ORDERED: AMOX875T PO (22:03)
--- NOTE | 2016-09-28 22:03 | PD ---
HPI Chief Complaint: Dizziness Time Seen by Provider: 22:01 Travel History International Travel<30 days: No Contact w/Intl Traveler<30days: No Traveled to known affect area: No History of Present Illness HPI Patient comes in complaining of left-sided facial pain and dizziness that began earlier today. Patient denies doing anything for this. Pain is worse with leaning forward. Patient denies any fevers, nausea, vomiting or chest pain, shortness breath, cough, abdominal pain, or . Patient denies being around anyone else sick. Denies any radiation of the pain. Pain is on the left side of her face without radiation. Patient reports associated headache. PFSH Past Medical History ADD: Yes Asthma: Yes Cardiovascular Problems: Yes (HTN) Diminished Hearing: No Hypertension: Yes Immunizations Current: Yes Ulcer: No ?: Not LMP: 09/06/16 : 4 Para: 3 Miscarriage: 0 : 0 Ovarian Cysts: Yes (2007) Past Surgical History Other Surgery: No Social History Alcohol Use: No Tobacco Use: No Substance Use: No Allergies-Medications (Allergen,Severity, Reaction): Coded Allergies: Percocet (Verified Allergy, Severe, WEAKNESS, 06/10/16) Reported Meds & Prescriptions Reported Meds & Active Scripts Active Flonase Nasal Jean (Fluticasone Nasal Jean) 50 Mcg/Act Jean 100 Mcg EACH NARE DAILY Amoxicillin 875 Mg Tab 875 Mg PO BID 10 Days Flagyl (Metronidazole) 500 Mg Tab 500 Mg PO BID Nifedipine ER 24 HR (Nifedipine) 30 Mg Tab 30 Mg PO DAILY Depo-Provera Inj (Medroxyprogesterone Inj) 150 Mg/Ml Inj 150 Mg IM ONCE Ibuprofen 600 Mg Tab 600 Mg PO Q6H PRN Senna Plus 8.6-50 mg (Sennosides-Docusate Sodium) 1 Tab Tab 2 Tab PO Q12H PRN Reported Prenate Mini 18-0.6-0.4-350 mg ( W/O Vit A W/ Fe Carbo) 1 Cap Cap Review of Systems Except as stated in HPI: all other systems reviewed are Neg Physical Exam Narrative GENERAL: Well-developed, overly nourished, in no acute distress, and non-ill appearing. SKIN: Focused skin assessment warm and dry. HEAD: Atraumatic. Normocephalic. EYES: Pupils equal and round. EOMI. No scleral icterus. No injection or drainage. ENT: No nasal bleeding or discharge. Mucous membranes pink and moist. Tympanic membranes pearly smalls bilaterally. Posterior pharynx nonerythematous and without exudate. Uvula is midline. Tenderness left maxillary sinus. NECK: Trachea midline. Supple. No nuclear rigidity. CARDIOVASCULAR: Regular rate and rhythm. No murmur appreciated. RESPIRATORY: No accessory muscle use. No respiratory distress. Clear to auscultation. Breath sounds equal bilaterally. MUSCULOSKELETAL: No obvious deformities. No clubbing. No cyanosis. No edema. Full range of motion. NEUROLOGICAL: Awake and alert. No obvious cranial nerve deficits. Motor grossly within normal limits. Normal speech. PSYCHIATRIC: Appropriate mood and affect; insight and judgment normal. Data Data Last Documented VS Vital Signs Date Time Temp Pulse Resp B/P Pulse Ox O2 Delivery O2 Flow Rate FiO2 09/28/16 18:55 97.9 103 16 163/89 98 MDM Medical Decision Making Medical Screen Exam Complete: Yes Emergency Medical Condition: Yes Differential Diagnosis Vertigo, sinusitis, otitis media, otitis externa, other Narrative Course Patient looks great, non-ill appearing. The patient is tolerating fluids and is well hydrated. Appears acute sinusitis. No clinical evidence by history or evaluation to suspect meningitis and/or sepsis. There was no evidence to suggest deep abscess or cavernous sinus involvement. I discussed with the patient, diagnosis, plan of care, medications and to follow up with the patient s primary physician. The patient was instructed to return if the worsens in anyway, especially if not tolerating fluids, increased sinus pain or swelling, worsening headache, persistent fever, difficulty swallowing or breathing, or as needed. The patient agreed with plan. Patient in no obvious distress upon re-evaluation. Patient was asked if they wanted to speak to my attending, which the patient did not wish to do at this time. Any questions/concerns in reference to patient diagnosis/condition discussed and clarified prior to patient's discharge. Reinforced sheer importance of close follow up with patient's primary physician or primary care clinic. Instructed patient to return to ED immediately, if symptoms return/ worsen. Pt showed understanding of above instructions. Further instructions and recommendations were detailed in discharge paperwork. Pt ambulated without difficulty out of ED at discharge. Diagnosis Primary Impression: Sinusitis Qualified Code: J01.00 - Acute maxillary sinusitis, recurrence not specified Patient Instructions: General Instructions, Sinusitis (ED) Additional Instructions: Follow-up with your primary care physician in 3-5 days for reevaluation. Take all medication as prescribed. Return to the emergency department if symptoms get worse. Med/Other Pt SpecificInfo: Prescription(s) given Scripts Fluticasone Nasal Jean (Flonase Nasal Jean)50 Mcg/Act [id number] Mcg EACH NARE DAILY #1 BOTTLE Ref 0 Prov:Nathaniel King MD 09/28/16 Amoxicillin 875 Mg [id number] Mg PO BID 10 Days Ref 0 Prov:Nathaniel King MD 09/28/16 Disposition: 01 DISCHARGE HOME Condition: Stable Mp Kumari Sep 28, 2016 22:03
== END 2016-09-28 22:22 | disposition home or self-care (01) ==
LOC: NEPK 18:53
DX: J01.00 Acute maxillary sinusitis, unspecified (principal)
CPT/HCPCS: 99284

== ENCOUNTER 2016-11-15 01:19 | Emergency (ER) | payer OTHER ==
[~2016-11-15] VITALS: Ht 165.1 cm; Wt 105.0 kg
[~2016-11-15 01:19] MED LIST changes: +AMOX875T PO; +FLUT1SPR5 EACH NARE
[2016-11-15 01:25] VITALS: BP 152/90; PULSE 88; RESP 18; TEMP 98.2; O2SAT 100
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
== END 2016-11-15 01:33 | disposition left against medical advice (07) ==
LOC: NEPD 01:19
DX: Z04.8 Encounter for examination and observation for other specified reasons (principal); M54.2 Cervicalgia; Y04.0XXA Assault by unarmed brawl or fight, initial encounter
CPT/HCPCS: 99281

== ENCOUNTER 2016-11-15 03:12 | Emergency (ER) | payer OTHER ==
[~2016-11-15] VITALS: Ht 157.5 cm; Wt 118.2 kg
[2016-11-15 03:15] VITALS: BP 143/100; PULSE 89; RESP 16; TEMP 98.5; O2SAT 100
[2016-11-15 03:22] VITALS: BP 202/91; PULSE 82; RESP 20; TEMP 98.1; O2SAT 100
[2016-11-15] MEDS ORDERED: SODIUM CHLORIDE 0.9% FLUSH 10 ML FLUSH IVF PRN (04:00)
[2016-11-15] MEDS ORDERED: ASPIRIN 81 MG CHEW TAB PO ONE (04:00)
--- NOTE | 2016-11-15 04:18 | RADRPT ---
EXAM DATE/TIME: 11/15/2016 04:00 [facility] COMPARISON: No previous studies available for comparison. INDICATIONS : Chest pain. MEDICAL HISTORY : None. SURGICAL HISTORY : None. ENCOUNTER: Initial ACUITY: 1 day PAIN SCORE: 10/10 LOCATION: Bilateral chest FINDINGS: A single view of the chest demonstrates the lungs to be symmetrically aerated without evidence of mas s, infiltrate or effusion. The cardiomediastinal contours are unremarkable. Osseous structures are intact. CONCLUSION: No acute disease. Alfonso Gupta MD on November 15, 2016 at 4:16 Board Certified Radiologist. This report was verified electronically.
[2016-11-15 04:20] LABS: AUTOMATED NEUTROPHIL # 2.2 TH/MM3 (1.8-7.7); BASOPHIL % 0.5 % (0.0-2.0); EOSINOPHIL # 0.1 TH/MM3 (0-0.4); EOSINOPHIL % 1.2 % (0.0-4.0); HEMATOCRIT 31.2 % (35.0-46.0); HEMO FLAGS DIFF FINAL; LYMPH % 36.5 % (9.0-44.0); LYMPHOCYTE # 1.5 TH/MM3 (1.0-4.8); MEAN CORPUSCULAR HEMOGLOBIN 17.8 PG (27.0-34.0); NEUT % 53.8 % (16.0-70.0); PLATELET COUNT 385 TH/MM3 (150-450); RED BLOOD COUNT 5.19 MIL/MM3 (4.00-5.30); RED CELL DISTRIBUTION WIDTH 18.2 % (11.6-17.2); WHITE BLOOD COUNT 4.1 TH/MM3 (4.0-11.0)
[2016-11-15 04:34] LABS: MEAN CORPUSCULAR HGB CONC 29.6 % (32.0-36.0)
[2016-11-15 04:35] LABS: APTT (PATIENT) 27.1 SEC (24.3-30.1); PROTHROMBIN TIME - PATIENT 10.8 SEC (9.8-11.6)
[2016-11-15 04:46] LABS: ALT (GPT) 29 U/L (10-53); ANION GAP 10 MEQ/L (5-15); AST (GOT) 13 U/L (15-37); BLOOD UREA NITROGEN 7 MG/DL (7-18); CHLORIDE 103 MEQ/L (98-107); GLOMERULAR FILTRATION RATE 146 ML/MIN (>89); MAGNESIUM 1.9 MG/DL (1.5-2.5); POTASSIUM 3.6 MEQ/L (3.5-5.1); SODIUM (NA) 141 MEQ/L (136-145)
[2016-11-15 04:50] VITALS: BP_SYST 116; BP_SYST 146; BP_DIAS 78; BP_DIAS 88; PULSE 74; RESP 20; O2SAT 100
[2016-11-15 04:51] LABS: ALKALINE PHOSPHATASE 88 U/L (45-117); TOTAL BILIRUBIN ADULT 0.1 MG/DL (0.2-1.0)
[2016-11-15 04:53] LABS: CREATINE KINASE 62 U/L (26-192)
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
[2016-11-15] MEDS ORDERED: KETOROLAC TROMETHAMINE 30 MG/ML (IVP) VIAL IV PUSH ONE (05:30)
--- NOTE | 2016-11-15 08:58 | EKG ---
Date Performed: 11/15/2016 Time Performed: 03:22:22 PTAGE: 20 years EKG: Sinus rhythm WITH FREQUENT VENTRICULAR PREMATURE COMPLEXES ABNORMAL RHYTHM ECG PREVIOUS TRACING : 01/31/2016 19.55 DOCTOR: Jonny Trivedi Interpretating Date/Time 11/15/2016 08:58:03
== END 2016-11-15 04:49 | disposition home or self-care (01) ==
LOC: NEPC 03:12
DX: R07.89 Other chest pain (principal); M79.1 Myalgia; Y04.0XXA Assault by unarmed brawl or fight, initial encounter; I49.3 Ventricular premature depolarization; I10 Essential (primary) hypertension; D64.9 Anemia, unspecified
CPT/HCPCS: 71010; 80053; 82550; 83690; 83735; 84484; 84703; 85025; 85610; 85730; 93005; 99285; J1885

== ENCOUNTER 2017-04-28 09:57 | Emergency (ER) | payer OTHER ==
[~2017-04-28] VITALS: Ht 157.5 cm; Wt 140.0 kg
[2017-04-28 10:00] VITALS: BP 165/83; PULSE 92; RESP 16; TEMP 98.4; O2SAT 100
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
[2017-04-28] MEDS ORDERED: IBUPROFEN 800 MG TAB PO ONE (11:30)
[2017-04-28 12:32] VITALS: RESP 16
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
== END 2017-04-28 13:24 | disposition home or self-care (01) ==
LOC: NEPK 09:57
DX: T14.8XXA Other injury of unspecified body region, initial encounter (principal); W17.89XA Other fall from one level to another, initial encounter; M54.5 Low back pain; M25.512 Pain in left shoulder; J45.909 Unspecified asthma, uncomplicated; I10 Essential (primary) hypertension; F32.9 Major depressive disorder, single episode, unspecified
CPT/HCPCS: 72100; 73030; 84703; 99283

== ENCOUNTER 2017-08-31 03:28 | Emergency (ER) | payer OTHER ==
[~2017-08-31] VITALS: Ht 157.5 cm; Wt 110.0 kg
[2017-08-31 03:30] VITALS: BP 123/70; PULSE 83; RESP 18; TEMP 97.9; O2SAT 100
[2017-08-31] MEDS ORDERED: SODIUM CHLOR 0.9% 1000 ML INJ 1,000 ML IV ONE (04:30)
[2017-08-31] MEDS ORDERED: PROCHLORPERAZINE INJ 10 MG/2 ML VIAL IV PUSH ONE (04:30)
[2017-08-31] MEDS ORDERED: KETOROLAC TROMETHAMINE 30 MG/ML (IVP) VIAL IV PUSH ONE (04:30)
[2017-08-31] MEDS ORDERED: diphenhydrAMINE HCL 50 MG/ML VIAL IV PUSH ONE (04:30)
--- NOTE | 2017-08-31 04:34 | PD ---
HPI Chief Complaint: Chest Pain Time Seen by Provider: 03:37 Travel History International Travel<30 days: No Contact w/Intl Traveler<30days: No Traveled to known affect area: No History of Present Illness HPI The patient is a 21 year old female who presents to the [facility] emergency department with a history of reportedly developing a headache around midnight today. She reports that she took Tylenol without any relief. She reports that the headache is behind her left eye. She reports that she has had similar headaches in the past. She reports that she has been diagnosed with migraine headaches. She denies taking any migraine headache medication. She cannot recall the name of her primary care physician as she has newly been assigned one. She reports having nausea associated with her headaches. She also reports having sensitivity to light and sound. She has a family history of migraine headaches in her mom. She denies his headache being any different from her prior headaches. She denies any thunderclap quality. The patient incidentally also reports that she has chest pain. She reports that this is been coming and going. She reports that since yesterday she is also been feeling cold even when she goes outside. She is concerned that she may be more anemic than she was in the past. She reports that she was on iron, however the prescription ran out. She denies having any shortness of breath. She denies having any indigestion or heartburn symptoms. On review of systems otherwise, she denies having any known recent fevers, congestion or congestion, neck pain, abdominal pain, vomiting, diarrhea, urinary symptoms, or other neurologic symptoms. LMP: August 06, 2017 [facility] Past Medical History Narrative Medical The patient's past medical history is significant for attention deficit disorder , asthma, anemia, depression, -induced hypertension, obesity, history of an ovarian cyst. ADD: Yes ADHD: No Anemia: Yes Asthma: Yes Depression: Yes Cancer: No Cardiovascular Problems: Yes (HTN) Diabetes: No Diminished Hearing: No Headaches: Yes Hypertension: Yes Psychiatric: No Immunizations Current: Yes Migraines: No Seizures: No Thyroid Disease: No Ulcer: No ?: Not : 4 Para: 3 Miscarriage: 0 : 0 Ovarian Cysts: Yes (2007) Past Surgical History Narrative Surgical The patient's past surgical history is significant for none. Other Surgery: No Social History Alcohol Use: No Tobacco Use: No Substance Use: No Allergies-Medications (Allergen,Severity, Reaction): Coded Allergies: acetaminophen (Unverified Allergy, Severe, WEAKNESS, 08/31/17) oxycodone (Unverified Allergy, Severe, WEAKNESS, 08/31/17) Reported Meds & Prescriptions Reported Meds & Active Scripts Active Ferrous Sulfate 325 Mg (65 Mg Iron) Tablet 325 Mg PO BIDPC Review of Systems Except as stated in HPI: all other systems reviewed are Neg General / Constitutional: No: Fever Eyes: No: Visual changes HENT: Positive: Headaches, No: Rhinorrhea, Congestion, Neck Stiffness, Neck Pain Cardiovascular: Positive: Chest Pain or Discomfort Respiratory: No: Shortness of Breath Gastrointestinal: Positive: Nausea, No: Vomiting, Diarrhea, Abdominal Pain Genitourinary: No: Dysuria Musculoskeletal: No: Pain Skin: No Rash Neurologic: Positive: Headache, No: Weakness, Focal Abnormalities, Change in Mentation, Slurred Speech, Sensory Disturbance Psychiatric: No: Depression Endocrine: Positive: Cold Intolerance, No: Polydipsia Hematologic/Lymphatic: No: Easy Bruising Physical Exam Narrative General: The patient is a well-developed well-nourished female in no acute distress. Head and Neck exam: Head is normocephalic atraumatic. Eyes: EOMI, pupils are equal round and reactive to light. Nose: Midline septum with pink mucous membranes Mouth: Dentition unremarkable. Moist mucus membranes. Posterior oropharynx is not erythematous. No tonsillar hypertrophy. Uvula midline. Airway patent. Neck: No palpable lymphadenopathy. No nuchal rigidity. No thyromegaly. Cardiovascular: Regular rate and rhythm without murmurs, gallops, or rubs. No pulse deficit to the extremities on simultaneous auscultation and palpation of her radial artery. No chest wall tenderness on palpation. Lungs: Clear to auscultation bilaterally. No wheezes, rhonchi, or rales. Abdomen: Soft, without tenderness to palpation in all 4 quadrants of the abdomen. No guarding, rebound, or rigidity. No tenderness on palpation of McBurney's point. Negative Gonzalez sign. Extremities: No clubbing, cyanosis, or edema. 2+ pulses in all 4 extremities. No calf tenderness on palpation. Back: No costovertebral angle tenderness to palpation. Neurologic Exam: Cranial nerves 2-12 were intact on exam. Strength is 5/5 in all 4 extremities. No sensory deficits noted. Skin Exam: No rash noted. Intact skin that is warm and dry. Data Data Last Documented VS Vital Signs Date Time Temp Pulse Resp B/P (MAP) Pulse Ox O2 Delivery O2 Flow Rate FiO2 08/31/17 03:30 97.9 83 18 123/70 (87) 100 Orders Orders Electrocardiogram (08/31/17 03:47) Complete Blood Count With Diff (08/31/17 04:22) Comprehensive Metabolic Panel (08/31/17 04:22) Thyroid Stimulating Hormone (08/31/17 04:22) Iv Access Insert/Monitor (08/31/17 04:22) Ecg Monitoring (08/31/17 04:22) Oximetry (08/31/17 04:22) Sodium Chlor 0.9% 1000 Ml Inj (Ns 1000 M (08/31/17 04:30) Ketorolac Inj (Toradol Inj) (08/31/17 04:30) Diphenhydramine Inj (Benadryl Inj) (08/31/17 04:30) Prochlorperazine Inj (Compazine Inj) (08/31/17 04:30) Ed Discharge Order (08/31/17 05:25) Labs Laboratory Tests Test 08/31/17 04:35 White Blood Count 7.7 TH/MM3 Red Blood Count 4.85 MIL/MM3 Hemoglobin 9.1 GM/DL Hematocrit 29.9 % Mean Corpuscular Volume 61.7 FL Mean Corpuscular Hemoglobin 18.7 PG Mean Corpuscular Hemoglobin Concent 30.4 % Red Cell Distribution Width 18.1 % Platelet Count 404 TH/MM3 Mean Platelet Volume 7.8 FL Neutrophils (%) (Auto) 53.5 % Lymphocytes (%) (Auto) 35.4 % Monocytes (%) (Auto) 7.3 % Eosinophils (%) (Auto) 2.8 % Basophils (%) (Auto) 1.0 % Neutrophils # (Auto) 4.1 TH/MM3 Lymphocytes # (Auto) 2.7 TH/MM3 Monocytes # (Auto) 0.6 TH/MM3 Eosinophils # (Auto) 0.2 TH/MM3 Basophils # (Auto) 0.1 TH/MM3 CBC Comment DIFF FINAL Differential Comment Blood Urea Nitrogen 7 MG/DL Creatinine 0.55 MG/DL Random Glucose 90 MG/DL Total Protein 7.0 GM/DL Albumin 3.1 GM/DL Calcium Level 8.5 MG/DL Alkaline Phosphatase 79 U/L Aspartate Amino Transf (AST/SGOT) 7 U/L Alanine Aminotransferase (ALT/SGPT) 22 U/L Total Bilirubin 0.1 MG/DL Sodium Level 142 MEQ/L Potassium Level 3.6 MEQ/L Chloride Level 107 MEQ/L Carbon Dioxide Level 27.4 MEQ/L Anion Gap 8 MEQ/L Estimat Glomerular Filtration Rate 166 ML/MIN Thyroid Stimulating Hormone 3rd Gen 1.250 uIU/ML MDM Medical Decision Making Medical Screen Exam Complete: Yes Emergency Medical Condition: Yes Medical Record Reviewed: Yes Differential Diagnosis Symptomatic anemia, versus migraine headache, versus tension headache, versus cluster headache Narrative Course During the course of the patient's emergency department visit, the patient's history, examination, and differential diagnosis were reviewed with the patient. The patient was placed on a insulation cutter and former with oximetry and frequent blood pressure monitoring. The patient had IV access obtained and blood work sent for analysis. The patient had an EKG done on arrival that shows a sinus rhythm heart rate of 61, QRS duration 96 ms, QTC 395 ms. The patient was initially provided normal saline 1 L IV fluid bolus, Compazine 5 mg IV, Benadryl 25 mg IV, Toradol 15 mg IV. The patient's laboratory studies were reviewed and remarkable for a white count of 7.7, hemoglobin 9.1 which is stable compared to her prior level of anemia at 9, MCV is low at 61.7 suggestive of an iron deficiency anemia, platelets 404 with a normal differential, CMP is remarkable for a total bilirubin of 0.1, AST 7, albumin 3.1, TSH 1.25 The patient will be discharged home on an iron supplement. The patient is instructed to follow-up with her primary care physician regarding her migraine headaches and iron deficiency anemia. The patient is resting comfortably and feels better, is alert and in no distress. The patient's results and examination findings were discussed with the patient. The repeat examination is unremarkable and benign. The history, exam, diagnostic testing, and current condition do not suggest any significant pathology to warrant further testing, continued ED treatment, admission, or surgical evaluation at this point. The vital signs have been stable. The patient does not have uncontrollable pain, intractable vomiting, or other significant symptoms. The patient's condition is stable and appropriate for discharge. The patient will pursue further outpatient evaluation with a primary care physician or other designated or consulting physician as indicated in the discharge instructions. The patient is instructed to report back to the emergency department immediately for reexamination in the mean time if he/ she develops any new or worsening signs or symptoms. The patient expressed understanding and was agreeable with this plan. Diagnosis Primary Impression: Anemia Qualified Codes: D50.9 - Iron deficiency anemia, unspecified Additional Impression: Headache Qualified Codes: R51 - Headache Referrals: Primary Care Physician 2 days Patient Instructions: Acute Headache (ED), Anemia (ED), General Instructions Med/Other Pt SpecificInfo: Prescription(s) given Scripts Ferrous Sulfate (Ferrous Sulfate) 325 Mg (65 Mg Iron) Tablet 325 MG PO BIDPC for Nutritional Supplement, #60 TAB 0 Refills Prov: Agatha Delgadillo MD 08/31/17 Disposition: 01 DISCHARGE HOME Condition: Stable Agatha Delgadillo MD Aug 31, 2017 04:34
[2017-08-31 04:54] LABS: AUTOMATED NEUTROPHIL # 4.1 TH/MM3 (1.8-7.7); BASOPHIL # 0.1 TH/MM3 (0-0.2); EOSINOPHIL # 0.2 TH/MM3 (0-0.4); EOSINOPHIL % 2.8 % (0.0-4.0); HEMATOCRIT 29.9 % (35.0-46.0); HEMOGLOBIN 9.1 GM/DL (11.6-15.3); LYMPH % 35.4 % (9.0-44.0); LYMPHOCYTE # 2.7 TH/MM3 (1.0-4.8); MEAN CELL VOLUME 61.7 FL (80.0-100.0); MEAN CORPUSCULAR HEMOGLOBIN 18.7 PG (27.0-34.0); MEAN CORPUSCULAR HGB CONC 30.4 % (32.0-36.0); MEAN PLATELET VOLUME 7.8 FL (7.0-11.0); MONO % 7.3 % (0.0-8.0); MONOCYTE # 0.6 TH/MM3 (0-0.9); NEUT % 53.5 % (16.0-70.0); PLATELET COUNT 404 TH/MM3 (150-450); RED BLOOD COUNT 4.85 MIL/MM3 (4.00-5.30); RED CELL DISTRIBUTION WIDTH 18.1 % (11.6-17.2); WHITE BLOOD COUNT 7.7 TH/MM3 (4.0-11.0)
[2017-08-31 05:09] LABS: ALBUMIN 3.1 GM/DL (3.4-5.0); ALT (GPT) 22 U/L (10-53); AST (GOT) 7 U/L (15-37); BICARBONATE 27.4 MEQ/L (21.0-32.0); BLOOD UREA NITROGEN 7 MG/DL (7-18); CALCIUM 8.5 MG/DL (8.5-10.1); CHLORIDE 107 MEQ/L (98-107); CREATININE 0.55 MG/DL (0.50-1.00); GLOMERULAR FILTRATION RATE 166 ML/MIN (>89); GLUCOSE,RANDOM 90 MG/DL (74-106); SODIUM (NA) 142 MEQ/L (136-145)
[2017-08-31 05:19] LABS: ALKALINE PHOSPHATASE 79 U/L (45-117); TOTAL BILIRUBIN ADULT 0.1 MG/DL (0.2-1.0)
[2017-08-31] MEDS ORDERED: FERR325T18 PO (05:26)
--- NOTE | 2017-08-31 16:59 | EKG ---
Date Performed: 08/31/2017 Time Performed: 04:12:07 PTAGE: 21 years EKG: Sinus rhythm NORMAL ECG PREVIOUS TRACING : 11/15/2016 03.22 Since the previous tracing, no significant change noted DOCTOR: Frances Huitron Interpretating Date/Time 08/31/2017 16:57:05
[2017-09-01] MEDS ORDERED: IBUP1TAB7 PO (19:04)
== END 2017-08-31 06:55 | disposition home or self-care (01) ==
LOC: NEPE 03:28
DX: D64.9 Anemia, unspecified (principal); R51 Headache; R11.0 Nausea; R07.9 Chest pain, unspecified; F98.8 Other specified behavioral and emotional disorders with onset usually occurring in childhood and adolescence; J45.909 Unspecified asthma, uncomplicated; F32.9 Major depressive disorder, single episode, unspecified; I10 Essential (primary) hypertension; Z88.6 Allergy status to analgesic agent; Z88.5 Allergy status to narcotic agent
CPT/HCPCS: 80053; 84443; 85025; 93005; 96374; 96375; 99284; J0780; J1200; J1885; J7030

== ENCOUNTER 2017-09-01 17:34 | Emergency (ER) | payer OTHER ==
[~2017-09-01] VITALS: Ht 157.5 cm; Wt 120.0 kg
[~2017-09-01 17:34] MED LIST changes: -AMOX875T PO; -DEPO150I IM; +FERR325T18 PO; -FLUT1SPR5 EACH NARE; -IBUP-232 PO; -METR-1 PO; -NIFE30TA8 PO; -PREN1CAP20; -SENN1TAB PO
[2017-09-01 17:42] VITALS: BP 140/65; PULSE 89; RESP 20; TEMP 98.4; O2SAT 100
[2017-09-01] MEDS ORDERED: IBUPROFEN 800 MG TAB PO ONE (18:00)
--- NOTE | 2017-09-01 18:44 | RADRPT ---
EXAM DATE: 09/01/2017 6:40 PM EDT AGE/SEX: 21 years / Female INDICATIONS: Pain and swelling in right foot after tripping over a brick. CLINICAL DATA: This is the patient's initial encounter. Patient reports that signs and symptoms have been present for 1 day and indicates a pain score of 6/10. MEDICAL/SURGICAL HISTORY: None. None. COMPARISON: No prior exams available for comparison. FINDINGS: Bony structures are intact and in normal alignment. Osseous density is normal. Soft tissues are prom inent. No radiopaque foreign bodies seen. CONCLUSION: Soft tissue swelling without acute fracture. Electronically signed by: Darian Carvajal MD 09/01/2017 6:43 PM EDT
--- NOTE | 2017-09-01 18:48 | RADRPT ---
EXAM DATE: 09/01/2017 6:44 PM EDT AGE/SEX: 21 years / Female INDICATIONS: Left ankle pain and swelling status post tripping over brick. CLINICAL DATA: This is the patient's initial encounter. Patient reports that signs and symptoms have been present for 1 day and indicates a pain score of 5/10. MEDICAL/SURGICAL HISTORY: None. None. COMPARISON: No prior exams available for comparison. FINDINGS: Bony structures are intact and in normal alignment. Joints are intact without dislocation or signifi cant arthropathy. Osseous density is normal. Ankle mortise intact. Soft tissues are prominent. No radiopaque foreign bodies seen. CONCLUSION: Soft tissue swelling without fracture Electronically signed by: Darian Carvajal MD 09/01/2017 6:47 PM EDT
--- NOTE | 2017-09-01 18:51 | RADRPT ---
EXAM DATE: 09/01/2017 6:43 PM EDT AGE/SEX: 21 years / Female INDICATIONS: Right ankle pain and swelling status post tripping over brick. CLINICAL DATA: This is the patient's initial encounter. Patient reports that signs and symptoms have been present for 1 day and indicates a pain score of 9/10. MEDICAL/SURGICAL HISTORY: None. None. COMPARISON: No prior exams available for comparison. FINDINGS: Bony structures are intact and in normal alignment. Joints are intact without dislocation or signifi cant arthropathy. Osseous density is normal. Soft tissues are prominent. Ankle mortise intact. No radiopaque foreign bodies seen. CONCLUSION: Soft tissue swelling without fracture. Electronically signed by: Darian Carvajal MD 09/01/2017 6:50 PM EDT
[2017-09-01] MEDS ORDERED: IBUP1TAB7 PO (19:04)
--- NOTE | 2017-09-01 19:04 | PD ---
HPI Chief Complaint: Injury Time Seen by Provider: 17:47 Travel History International Travel<30 days: No Contact w/Intl Traveler<30days: No Traveled to known affect area: No History of Present Illness HPI 21-year-old female presents to the emergency department with complaint of bilateral ankle pain and right foot pain after tripping over a brick this morning while walking. She did not fall to the ground. Says she twisted both of her ankles. Has been ambulatory since after the fall. Denies paresthesias, loss of sensation, decreased range of motion, decreased strength to bilateral lower extremities. Rates pain 9/10. Has been taking Tylenol for symptom management. Pain is aggravated with ambulation. Better at rest. History of hypertension. Allergies to Tylenol, even though she states she has been taking. Has a primary care provider but does not know the name. Has no other medical complaints. No other modifying factors or associated signs and symptoms. PFSH Past Medical History ADD: Yes ADHD: No Anemia: Yes Asthma: Yes Depression: Yes Cancer: No Cardiovascular Problems: Yes (HTN) Diabetes: No Diminished Hearing: No Headaches: Yes Hypertension: Yes Psychiatric: No Immunizations Current: Yes Migraines: No Seizures: No Thyroid Disease: No Ulcer: No ?: Not : 4 Para: 3 Miscarriage: 0 : 0 Ovarian Cysts: Yes (2007) Past Surgical History Other Surgery: No Social History Alcohol Use: No Tobacco Use: No Substance Use: No Allergies-Medications (Allergen,Severity, Reaction): Coded Allergies: acetaminophen (Unverified Allergy, Severe, WEAKNESS, 09/01/17) Reported Meds & Prescriptions Reported Meds & Active Scripts Active Ibuprofen 800 Mg Tab 800 Mg PO Q8H PRN Ferrous Sulfate 325 Mg (65 Mg Iron) Tablet 325 Mg PO BIDPC Review of Systems Except as stated in HPI: all other systems reviewed are Neg Physical Exam Narrative GENERAL: Well-nourished, well-developed black female patient, in no acute distress SKIN: Warm and dry. HEAD: Atraumatic. Normocephalic. EYES: Pupils equal and round. No scleral icterus. No injection or drainage. ENT: Mucosa pink and moist. Airway patent. NECK: Trachea midline. CARDIOVASCULAR: Regular rate. RESPIRATORY: No accessory muscle use. GASTROINTESTINAL: Morbidly obese. MUSCULOSKELETAL: Right and left ankle with point tenderness to the lateral malleoli zone with palpation; no obvious deformity; both with edema noted to the lateral aspect; without ecchymosis, erythema. Right foot with tenderness on palpation to the metatarsal region; with edema; without erythema or ecchymosis; no obvious deformity. Bilateral lower extremity is supple and nontense with 2+ pedal pulse and sensory intact. No obvious deformities. No clubbing. No cyanosis. No edema. NEUROLOGICAL: Awake and alert. Oriented 3. No obvious cranial nerve deficits. Motor grossly within normal limits. Normal speech. PSYCHIATRIC: Appropriate mood and affect; insight and judgment normal. Data Data Last Documented VS Vital Signs Date Time Temp Pulse Resp B/P (MAP) Pulse Ox O2 Delivery O2 Flow Rate FiO2 09/01/17 17:42 98.4 89 20 140/65 (90) 100 Orders Orders Ankle, Complete ([id number]) (09/01/17 17:53) Foot, Complete ([id number]) (09/01/17 17:53) Ankle, Complete ([id number]) (09/01/17 17:53) Ibuprofen (Motrin) (09/01/17 18:00) Splint Or Brace Apply/Monitor (09/01/17 19:04) Ed Discharge Order (09/01/17 19:04) MDM Medical Decision Making Medical Screen Exam Complete: Yes Emergency Medical Condition: Yes Medical Record Reviewed: Yes Differential Diagnosis Sprain, fracture, injury Narrative Course 21-year-old female with right and left ankle injury and right foot injury. Ibuprofen, right foot x-ray, right ankle x-ray, left ankle x-ray ordered. 1901: Right ankle, right foot, left ankle x-rays conclude: Last 24 hours Impressions Foot X-Ray 09/01/171752 Signed Impressions: CONCLUSION: Soft tissue swelling without acute fracture. Ankle X-Ray 09/01/171752 Signed Impressions: CONCLUSION: Soft tissue swelling without fracture Ankle X-Ray 09/01/171752 Signed Impressions: CONCLUSION: Soft tissue swelling without fracture. Patient provided a copy of the x-ray reports. Moses bandage and ankle stirrup splint provided for support. I offered patient crutches and she declined. Injected patient to follow-up outpatient if symptoms persist greater than 7-10 days. Ibuprofen prescribed for home. Instructed patient to follow up with primary care provider. Patient verbalizes understanding and agreement with treatment plan. Patient is medically cleared and stable for discharge. Discussed reasons to return to the emergency department. Patient agrees with treatment plan. The patients vital signs are stable and the patient is stable for outpatient follow-up and treatment. Patient discharged home, stable and in no acute distress. Diagnosis Primary Impression: Right foot injury Qualified Codes: S99.921A - Unspecified injury of right foot, initial encounter Additional Impressions: Right ankle injury Qualified Codes: S99.911A - Unspecified injury of right ankle, initial encounter Left ankle injury Qualified Codes: S99.912A - Unspecified injury of left ankle, initial encounter Referrals: [facility] Primary Care Physician Patient Instructions: Ankle Sprain (ED), Crutch Instructions (ED), Foot Sprain (ED), General Instructions Additional Instructions: Tylenol or ibuprofen as directed and as needed for pain and inflammation Rest, ice, compress, and elevate extremity to decrease pain and inflammation Ankle Brace for support Crutches as needed for support Avoid aggravating activity; increase activity as tolerated Follow-up with primary care provider Return to the emergency department immediately with worsening of symptoms Med/Other Pt SpecificInfo: Prescription(s) given Scripts Ibuprofen (Ibuprofen) 800 Mg Tab 800 MG PO Q8H Y for PAIN SCALE 1 TO 10, #20 TAB 0 Refills Prov: Avani Sanchez 09/01/17 Disposition: 01 DISCHARGE HOME Condition: Stable Avani Sanchez Sep 01, 2017 19:04
== END 2017-09-01 19:23 | disposition home or self-care (01) ==
LOC: NEPK 17:34
DX: S99.921A Unspecified injury of right foot, initial encounter (principal); S99.911A Unspecified injury of right ankle, initial encounter; S99.912A Unspecified injury of left ankle, initial encounter; W18.40XA Slipping, tripping and stumbling without falling, unspecified, initial encounter; I10 Essential (primary) hypertension; J45.909 Unspecified asthma, uncomplicated
CPT/HCPCS: 73610; 73630; 99283

== ENCOUNTER 2017-09-03 17:20 | Emergency (ER) | payer OTHER ==
[~2017-09-03] VITALS: Ht 157.5 cm; Wt 109.0 kg
[~2017-09-03 17:20] MED LIST changes: +IBUP1TAB7 PO
[2017-09-03 17:27] VITALS: BP 117/56; PULSE 73; RESP 15; TEMP 98.7; O2SAT 99
--- NOTE | 2017-09-03 19:41 | PD ---
HPI Chief Complaint: Injury Time Seen by Provider: 19:34 Travel History International Travel<30 days: No Contact w/Intl Traveler<30days: No Traveled to known affect area: No History of Present Illness HPI 21-year-old black female presents emergency room for a 2 day recheck after falling twisting her feet. She states that they have not significantly resolved since her initial injury. She said she has not contacted her primary care doctor. She states that she was told to come back to the ER if she still had any pain. She denies any fever chills. She does state that she has noted a small sore in the top of her right foot. She is unsure whether this could be a spider bite. She has had no drainage. No known insect bite. Symptoms are mild. Alleviated by elevation. Worsened by weightbearing. History Past Medical Histgory Tetanus Vaccination: < 5 Years Hx Cancer: No Social History Alcohol Use: No Tobacco Use: No Allergies-Medications (Allergen,Severity, Reaction): Coded Allergies: acetaminophen (Unverified Allergy, Severe, WEAKNESS, 09/03/17) Reported Meds & Prescriptions Reported Meds & Active Scripts Active Ibuprofen 800 Mg Tab 800 Mg PO Q8H PRN Ferrous Sulfate 325 Mg (65 Mg Iron) Tablet 325 Mg PO BIDPC Review of Systems General / Constitutional: No: Fever Eyes: No: Visual changes HENT: No: Headaches Cardiovascular: No: Chest Pain or Discomfort Respiratory: No: Shortness of Breath Gastrointestinal: No: Abdominal Pain Genitourinary: No: Dysuria Musculoskeletal: Positive: Myalgias, Arthralgias, Limited ROM, Edema, Pain, No : Weakness Skin: No Rash Neurologic: No: Weakness Psychiatric: No: Depression Endocrine: No: Polydipsia Hematologic/Lymphatic: No: Easy Bruising Physical Exam Narrative GENERAL: This is a well-nourished, well-developed patient, in no apparent distress. SKIN: No rashes, ecchymoses or lesions. Warm and dry. HEAD: Atraumatic. Normocephalic. EYES: PERRL, EOMI, no discharge or injection. No scleral icterus. EARS: Clear NOSE: Nasal turbinates appear normal. THROAT: Mucosa pink and moist. Airway patent. NECK: Trachea midline. supple, moves head freely. LUNGS: Clear to auscultation. CV: Regular in rhythm. ABDOMEN: Soft nontender. EXT: No clubbing cyanosis examination of her lower extremities reveal mild swelling to both feet and ankles. There is a small area of erythema to the dorsum of the right foot. It does not appear to be an insect bite. No abscess. Patient has no bony tenderness. She is able to stand at bedside and ambulate with only minimal antalgic gait. She has intact sensation with good distal pulses. Data Data Last Documented VS Vital Signs Date Time Temp Pulse Resp B/P (MAP) Pulse Ox O2 Delivery O2 Flow Rate FiO2 09/03/17 17:27 98.7 73 15 117/56 (76) 99 MDM Medical Screen Exam Complete: Yes Emergency Medical Condition: No Differential Diagnosis MDM: High Differential diagnoses: Fracture, sprain, strain, dislocation, contusion, neurovascular injury Narrative Course A medical screening exam was performed: At the time of evaluation the presenting medical condition was determined not to be of an emergent nature. The patient was given the option of receiving additional care, but declined. Patient was given options for additional community resources from which to obtain care. The Patient Has Been advised to seek medical attention for their presenting complaint. The patient has been advised to return to the ER at any time if an emergent condition develops. Primary Impression: Encounter for medical screening examination Condition: Stable Alfonso Wu Sep 03, 2017 19:41
== END 2017-09-03 19:44 | disposition left against medical advice (07) ==
LOC: NEPK 17:20
DX: M79.89 Other specified soft tissue disorders (principal)
CPT/HCPCS: 99281